=== PATIENT | male | born 1945 | race Caucasian/White ===

== ENCOUNTER 2018-12-31 11:45 | Inpatient (IN) ==
--- NOTE | 2018-12-31 12:45 | Emergency Department Note ---
Disposition Clinical Impression: Hypoxia Pneumonia Qualifiers: Pneumonia type: due to unspecified organism Laterality: left Lung location: upper lobe of lung Qualified Code(s): J18.1 - Lobar pneumonia, unspecified [facility] Lung cancer Qualifiers: Laterality: left Lung location: unspecified part of lung Qualified Code(s): C34.92 - Malignant neoplasm of unspecified part of left bronchus or lung Disposition: Admitted As Inpatient Condition: Good Time of Disposition: 14:00 General Adult HPI - General Chief complaint: ED Weakness Stated complaint: Weakness/Falls/Cough Time Seen by Provider: 12/31/18 12:45 Source: patient Limitations: no limitations Nursing Notes Reviewed: Yes Vital Signs Reviewed: Yes - History of Present Illness HPI Narrative: 73-year-old male presents emergency department with concern for generalized weakness and falls. Patient states that he has left-sided lung cancer, but has not been formally diagnosed or worked up for it. Was scheduled for PET scan today, however, at home is concerned that he has not been able to get around, he has been very weak, falling multiple times. Denies hitting his head. Pain Scale: 6 - Related Data Home Medications Medication Instructions Recorded Confirmed Diltiazem CD (24hr) [Cardizem CD] 240 mg PO DAILY 12/20/18 12/31/18 GlipiZIDE [Glipizide Xl] 5 mg PO BID 12/20/18 12/31/18 Losartan Potassium [Cozaar] 50 mg PO DAILY 12/20/18 12/31/18 Metoprolol XL (24 HR) Succ [Toprol 25 mg PO BID 12/20/18 12/31/18 XL] Simvastatin [Zocor] 40 mg PO HS 12/20/18 12/31/18 Triamterene/HCTZ 37.5/25mg 1 tab PO DAILY 12/20/18 12/31/18 [Dyazide] buPROPion HCl [Bupropion HCl Sr] 200 mg PO BID 12/20/18 12/31/18 clonazePAM [Clonazepam] 2 mg PO BID PRN 12/31/18 12/31/18 raNITIdine HCl [Ranitidine HCl] 300 mg PO DAILY 12/31/18 12/31/18 Allergies Allergy/AdvReac Type Severity Reaction Status Date / Time No Known Allergies Allergy Verified 12/20/18 16:46 All systems ED: reviewed and negative except as stated. Review of Systems: As Per HPI Constitutional: Denies: fever Cardiovascular: Denies: chest pain Respiratory: Reports: cough, dyspnea. Denies: sputum production Gastrointestinal: Reports: nausea. Denies: abdominal pain, vomiting Genitourinary: Denies: urgency, dysuria, frequency Musculoskeletal: Denies: back pain, neck pain Past Medical History - Past Medical History Attestation: Yes The following information was validated with the patient. Medical history: Reports: cancer, diabetes, hypertension, myocardial infarction Psychiatric history: Reports: no psych history - Social History Smoking Status: Former smoker Smokeless Tobacco Status: Yes Alcohol use: Reports: none Drug use: Reports: none Physical Exam - General Limitations: no limitations General appearance: alert, in no apparent distress - Head Head exam: normocephalic - Eye Eye exam: Present: EOMI - ENT ENT exam: mucous membranes moist - Neck Neck exam: Present: trachea midline - Chest Chest inspection: Present: symmetric chest wall rise - Respiratory Respiratory exam: Present: normal lung sounds bilaterally, wheezes. Absent: respiratory distress, accessory muscle use - Cardiovascular Cardiovascular exam: Present: regular rate, irregular rhythm, normal heart sounds - Abdominal Exam Abdominal exam: Present: soft, Non-Tender. Absent: distention, guarding, rebound, rigidity - Extremities Exam Extremities exam: Present: normal capillary refill - Back Exam Back exam: Present: full ROM - Neurological Exam Neurological exam: Present: alert, oriented X3, CN II-XII intact - Psychiatric Psychiatric exam: Present: normal affect, normal mood - Skin Skin exam: Present: warm, dry, intact, normal color. Absent: rash Course Vital Signs Temperature 98.3 F 12/31/18 12:00 Pulse Rate 60 12/31/18 12:00 Respiratory Rate 18 12/31/18 12:00 Blood Pressure 114/63 12/31/18 12:00 O2 Sat by Pulse Oximetry 96 12/31/18 12:00 Temperature 98.1 F 12/31/18 15:18 Pulse Rate 78 12/31/18 15:18 Respiratory Rate 17 12/31/18 15:18 Blood Pressure 111/72 12/31/18 15:18 O2 Sat by Pulse Oximetry 96 12/31/18 15:39 Oxygen Delivery Oxygen Delivery Room Air Medical Decision Making - MDM Narrative Medical decision making narrative: 73-year-old male presents emergency department with concern for generalized weakness. Patient's chest x-ray which reveals lung mass on the left side with possible pneumonia. Patient was given Rocephin and azithromycin. Blood cultures were obtained. Patient with no elevated troponin, no ischemic ST changes on ECG, no other abnormalities. Patient had oxygen saturation about 92% throughout his stay. We did provide 2 L of oxygen via nasal cannula. Patient admitted for generalized weakness with multiple falls as well as COPD exacerbation with pneumonia. Here throughout his stay, he could receive further workup for his cancer. Did not provide any fluid out of concern for possible fluid overload with some of the read from radiology report. Chest X-Ray 12/31/18 13:04 IMPRESSION: 1. Left middle lower lung interstitial opacities, increased from prior study may represent asymmetric pulmonary edema, interstitial pneumonitis, or posttherapy changes. 2. Left perihilar mass again seen. D/ / Varun Gilbert MD / Varun Gilbert MD Interpreting Provider: Varun Gilbert MD - Lab Data Result diagrams: 12/31/18 12:43 12/31/18 12:43 Lab Results 12/31/18 12/31/18 12/31/18 Range/Units 12:43 12:43 13:49 WBC 9.1 (4.3-11.1) K/mcL RBC 3.54 L (4.19-5.50) M/mcL Hgb 10.4 L (12.9-16.9) g/dL Hct 32.1 L (37.5-50.1) % MCV 90.7 (83.0-100.0) fL MCH 29.4 (28.0-33.3) pg MCHC 32.4 (31.6-35.5) g/dL RDW 14.9 H (11.5-14.5) % Plt Count 358 (140-400) K/mcL MPV 8.6 L (9.4-12.4) fL Immature Gran % 0.7 (0-4) % Seg Neutrophils % 71.0 % Lymphocytes % 13.3 % Monocytes % 13.9 % Eosinophils % 0.8 % Basophils % 0.3 % Neutrophils # 6.4 (1.6-8.9) K/mcL Lymphocytes # 1.2 (0.6-4.6) K/mcL Monocytes # 1.3 (0.0-1.3) K/mcL Eosinophils # 0.1 (0.0-0.6) K/mcL Basophils # 0.0 (0.0-0.2) K/mcL Sodium 137 (136-145) mEq/L Potassium 3.9 (3.5-5.1) mEq/L Chloride 101 (98-107) mEq/L Carbon Dioxide 29 (23-29) mEq/L BUN 16 (8-23) mg/dL Creatinine 0.73 (0.70-1.30) mg/dL Est GFR ( Amer) > 60 (> 60) Est GFR (Non-Af Amer) > 60 (> 60) BUN/Creatinine Ratio 22 (6-26) Glucose 136 H (70-105) mg/dL Calculated Osmolality 287 (280-300) Calcium 8.9 (8.6-10.3) mg/dL Troponin I < 0.03 (< 0.04) ng/mL B-Natriuretic Peptide (Less than 100) pg/mL Urine Color Yellow (Yellow) Urine Clarity Clear (Clear) Urine pH 7.5 (5.0-8.0) pH Units Ur Specific [place] 1.011 (1.010-1.025) Urine Protein Negative (Neg-Trace) mg/dL Urine Glucose (UA) Normal (Normal) mg/dL Urine Ketones Negative (Negative) mg/dL Urine Blood Negative (Negative) Urine Nitrite Negative (Negative) Urine Bilirubin Negative (Negative) Urine Urobilinogen Normal (Normal) mg/dL Ur Leukocyte Esterase Negative (Negative) Ur Culture Indicated? NO (NO) 12/31/18 Range/Units 13:54 WBC (4.3-11.1) K/mcL RBC (4.19-5.50) M/mcL Hgb (12.9-16.9) g/dL Hct (37.5-50.1) % MCV (83.0-100.0) fL MCH (28.0-33.3) pg MCHC (31.6-35.5) g/dL RDW (11.5-14.5) % Plt Count (140-400) K/mcL MPV (9.4-12.4) fL Immature Gran % (0-4) % Seg Neutrophils % % Lymphocytes % % Monocytes % % Eosinophils % % Basophils % % Neutrophils # (1.6-8.9) K/mcL Lymphocytes # (0.6-4.6) K/mcL Monocytes # (0.0-1.3) K/mcL Eosinophils # (0.0-0.6) K/mcL Basophils # (0.0-0.2) K/mcL Sodium (136-145) mEq/L Potassium (3.5-5.1) mEq/L Chloride (98-107) mEq/L Carbon Dioxide (23-29) mEq/L BUN (8-23) mg/dL Creatinine (0.70-1.30) mg/dL Est GFR ( Amer) (> 60) Est GFR (Non-Af Amer) (> 60) BUN/Creatinine Ratio (6-26) Glucose (70-105) mg/dL Calculated Osmolality (280-300) Calcium (8.6-10.3) mg/dL Troponin I (< 0.04) ng/mL B-Natriuretic Peptide 177 H (Less than 100) pg/mL Urine Color (Yellow) Urine Clarity (Clear) Urine pH (5.0-8.0) pH Units Ur Specific [place] (1.010-1.025) Urine Protein (Neg-Trace) mg/dL Urine Glucose (UA) (Normal) mg/dL Urine Ketones (Negative) mg/dL Urine Blood (Negative) Urine Nitrite (Negative) Urine Bilirubin (Negative) Urine Urobilinogen (Normal) mg/dL Ur Leukocyte Esterase (Negative) Ur Culture Indicated? (NO) - EKG Data EKG #1 EKG attestation: Yes I reviewed and interpreted this EKG. EKG results narrative: 1303 Heart rate 76 bpm, QRS duration 125 ms, QT 391 segs, no P waves. Atrial flutter. This is new from previous ECG, but patient states he has a history of this. No Ischemic ST changes. Attestation Statement - Attestation Attestation: I examined this patient and my medical decision-making was reviewed with the Resident Physician. I agree with the documented findings, disposition and t reatment plan as described except to the extent set forth below. Patient presents here generalized weakness, does have a cough, patient does have a left-sided lung mass, he does have some wheezing on examination. However he is in no respiratory distress. Patient did have an EKG, do agree with resident's interpretation of this EKG. The patient appears to be in atrial flutter which he apparently has had a history of arrhythmia in the past. The patient possibly could have a post obstructive pneumonia. The patient at this point in time was treated with antibiotics, patient is going to be admitted for further evaluation and care.
[2018-12-31 12:57] LABS: Basophils % 0.3 %; Eosinophils # 0.1 K/mcL (0.0-0.6); Eosinophils % 0.8 %; Hematocrit 32.1 % (37.5-50.1); Hemoglobin 10.4 g/dL (12.9-16.9); Immature Granulocytes % 0.7 % (0-4); Lymphocytes # 1.2 K/mcL (0.6-4.6); Lymphocytes % 13.3 %; Mean Corpuscular HGB Conc 32.4 g/dL (31.6-35.5); Mean Corpuscular Hemoglobin 29.4 pg (28.0-33.3); Mean Corpuscular Volume 90.7 fL (83.0-100.0); Mean Platelet Volume 8.6 fL (9.4-12.4); Monocytes # 1.3 K/mcL (0.0-1.3); Monocytes % 13.9 %; Neutrophils # 6.4 K/mcL (1.6-8.9); Platelet Count 358 K/mcL (140-400); Red Blood Count 3.54 M/mcL (4.19-5.50); Red Cell Distribution Width 14.9 % (11.5-14.5); White Blood Count 9.1 K/mcL (4.3-11.1)
[2018-12-31] MEDS ORDERED: predniSONE 20 MG TABLET PO ONE (13:06)
[2018-12-31 13:19] LABS: BUN/Creatinine Ratio 22 (6-26); Blood Urea Nitrogen 16 mg/dL (8-23); Calcium 8.9 mg/dL (8.6-10.3); Carbon Dioxide 29 mEq/L (23-29); Chloride 101 mEq/L (98-107); Glucose 136 mg/dL (70-105); Osmolality,Calculated 287 (280-300); Potassium 3.9 mEq/L (3.5-5.1); Sodium 137 mEq/L (136-145); Troponin I < 0.03 ng/mL (< 0.04); eGFR For African Americans > 60 (> 60); eGFR For Non-African Americans > 60 (> 60)
[2018-12-31] MEDS: Ipratropium/Albuterol Neb 3 ML IH ONE ×3 (13:23→13:25)
[2018-12-31] MEDS ORDERED: cefTRIAXone 1,000 MG in Water for inj. (sterile) 10 ML IVP ONE (13:43)
[2018-12-31] MEDS ORDERED: Azithromycin 500 MG in 0.9 % Sodium Chloride 250 ML IVPB ONE (13:43)
[2018-12-31 14:05] LABS: Bilirubin,Urine Negative (Negative); Blood,Urine Negative (Negative); Clarity,Urine Clear (Clear); Color,Urine Yellow (Yellow); Glucose,Urine (UA) Normal (Normal); Ketones,Urine Negative (Negative); Leukocyte Esterase,Urine Negative (Negative); Nitrite,Urine Negative (Negative); PH,Urine 7.5 pH Units (5.0-8.0); Protein,Urine Negative (Neg-Trace); Specific Gravity,Urine 1.011 (1.010-1.025); Urobilinogen,Urine Normal (Normal)
[2018-12-31] MEDS ORDERED: Naloxone 0.4 MG/ML INJ IVP PRN (15:57)
--- NOTE | 2018-12-31 16:13 | Internal Med History&Physical ---
Date of Encounter: 12/31/18 Time of Encounter: 16:06 Internal Medicine - H&P: HPI Chief complaint: Weakness Admitted From: Home Plans for Post Hospital Care: Home History of present illness: Mr. Gayle is a 73 year old male with a PMHx of HTN, DM, CAD, Depression, A. Flutter, GERD and a recent diagnosis of Lung mass (suspicious for Ca). Patient was brought in by on account of increasing weakness, fever, chills and productive cough over the last 2 weeks. Patient has been following with oncology as an outpatient and was scheduled for a PET scan today but was concerned about his generalized weakness and brought him in. Past Med Surg Social Fam HX - Past Medical History Medical history: cancer, coronary artery disease, diabetes, GERD, hypertension, myocardial infarction Psychiatric history: depression - Past Surgical History Additional surgical history: Lt leg surgery - Social History Smoking Status: Former smoker Smokeless Tobacco Status: Yes Alcohol use: none Drug use: none - Family History Father Living Status: Age at : 82 Cause of : colon cancer Internal Medicine - H&P: Meds Diltiazem CD (24hr) [Cardizem CD] 240 mg PO DAILY 12/20/18 [History] GlipiZIDE [Glipizide Xl] 5 mg PO BID 12/20/18 [History] Losartan Potassium [Cozaar] 50 mg PO DAILY 12/20/18 [History] Metoprolol XL (24 HR) Succ [Toprol XL] 25 mg PO BID 12/20/18 [History] Simvastatin [Zocor] 40 mg PO HS 12/20/18 [History] Triamterene/HCTZ 37.5/25mg [Dyazide] 1 tab PO DAILY 12/20/18 [History] buPROPion HCl [Bupropion HCl Sr] 200 mg PO BID 12/20/18 [History] clonazePAM [Clonazepam] 2 mg PO BID PRN 12/31/18 [History] raNITIdine HCl [Ranitidine HCl] 300 mg PO DAILY 12/31/18 [History] Allergy/AdvReac Type Severity Reaction Status Date / Time No Known Allergies Allergy Verified 12/20/18 16:46 All Systems PM: A 10-system review of systems was performed and is negative for pertinent findings except as documented above in the HPI. Review of systems: GENERAL: Admits fever and chills. HEENT: No rhinorrhea, No sore throat, No ear pain or discharge, No dysphagia or odynophagia PULMONARY: Admits productive cough, No chest pain, Admits dyspnea on exertion CARDIOVASCULAR: No chest pain, no palpitations, No PND, No orthopnea GASTROINTESTINAL: No abdominal pain, No nausea, No vomiting, No constipation, No DIARRHEA, No hematemesis, No hematochezia MUSKULOSKELETAL: No edema, No swelling, No pain INTEGUMENTARY: No new skin lesions NERVOUS SYSTEM: No Dizziness, No weakness, No slurred speech, No diplopia or blurred/ loss vision, No numbness, No tingling sensation. - Constitutional Vitals: Temp Pulse Resp BP Pulse Ox 36.7 C 78 17 111/72 96 12/31/18 15:18 12/31/18 15:18 12/31/18 15:18 12/31/18 15:18 12/31/18 15:39 Exam: GENERAL: Not in distress. Alert and Oriented HEENT: EOMI, PERRLA MOUTH: Moist oral mucosa NECK:No JVD, No lymph nodes. CHEST AND LUNGS: Bronchial breath sounds in left middle zone posteriorly. No crackles or wheezes HEART: S1 and S2 normal, no murmurs ABDOMEN: Soft, nontender, no organomegaly SKIN: Normal: hyperpigmented macules on upper extremities. Patient states from bruising while he was on antiplatelets. EXTREMITIES: No deformity, no edema, no tenderness, no joint swelling or clubbing NEUROLOGICAL: Normal cognition, normal motor and sensory exam. Internal Med - H&P Results - Labs CBC & Chem 7: 12/31/18 12:43 12/31/18 12:43 Labs: Short CBC 12/31/18 Range/Units 12:43 WBC 9.1 (4.3-11.1) K/mcL Hgb 10.4 L (12.9-16.9) g/dL Hct 32.1 L (37.5-50.1) % Plt Count 358 (140-400) K/mcL Neutrophils # 6.4 (1.6-8.9) K/mcL BMP 12/31/18 12:43 Sodium 137 Potassium 3.9 Chloride 101 Carbon Dioxide 29 BUN 16 Creatinine 0.73 Glucose 136 H Calcium 8.9 Cardiac Enzymes 12/31/18 Range/Units 12:43 Troponin I < 0.03 (< 0.04) ng/mL Urine 12/31/18 Range/Units 13:49 Urine Color Yellow (Yellow) Urine Clarity Clear (Clear) Urine pH 7.5 (5.0-8.0) pH Units Ur Specific [place] 1.011 (1.010-1.025) Urine Protein Negative (Neg-Trace) mg/dL Urine Glucose (UA) Normal (Normal) mg/dL - Impressions ITS Impressions Chest X-Ray 12/31/18 13:04 IMPRESSION: 1. Left middle lower lung interstitial opacities, increased from prior study may represent asymmetric pulmonary edema, interstitial pneumonitis, or posttherapy changes. 2. Left perihilar mass again seen. D/ / Varun Gilbert MD / Varun Gilbert MD Interpreting Provider: Varun Gilbert MD - Assessment and Plan (1) Pneumonia Current Visit: Yes Status: Acute Assessment and plan: Patient admits fever, chills and productive cough with associated weakness over the last 2 weeks. Patient has a recently diagnosed lung mass suspicious for CA. Chest x-ray, which I personally reviewed shows a left upper lobe lung mass with hazy opacification in the lower border suspicious for possible pneumonia. We will treat as community-acquired pneumonia. This may likely be postobstructive from the large lung mass. Qualifiers: Pneumonia type: due to unspecified organism Laterality: left Lung location: upper lobe of lung Qualified Code(s): J18.1 - Lobar pneumonia, unspecified organism (2) Lung mass Current Visit: Yes Status: Acute Assessment and plan: Patient undergoing investigation as outpatient with oncology. We will scheduled for PET scan today but was unable to make appointment We will debt and budget counselor to follow up with oncology as outpatient once his acute problem is dealt with. (3) Hypertension Current Visit: Yes Status: Acute Assessment and plan: Continue home meds. Qualifiers: Hypertension type: essential hypertension Qualified Code(s): I10 - Essential (primary) hypertension (4) Diabetes mellitus Current Visit: Yes Status: Acute Assessment and plan: Accu-Cheks Insulin sliding scale Qualifiers: Diabetes mellitus type: type 2 Diabetes mellitus halfway insulin use: without halfway use Diabetes mellitus complication status: without complication Qualified Code(s): E11.9 - Type 2 diabetes mellitus without complications (5) Depression Current Visit: Yes Status: Chronic Assessment and plan: Patient is a [place] with a history of depression. We will continue home Wellbutrin. Qualifiers: Depression Type: major depressive disorder Major depression recurrence: recurrent Active/Remission status: in remission of unspecified degree Qualified Code(s): F33.40 - Major depressive disorder, recurrent, in remission, unspecified (6) Hyperlipidemia Current Visit: Yes Status: Chronic Assessment and plan: Continue statin. Qualifiers: Hyperlipidemia type: mixed hyperlipidemia Qualified Code(s): E78.2 - Mixed hyperlipidemia - Time Spent With Patient Total time spent is greater than 50% in coordination of care (as documented) at patient's floor/unit and/or counseling patient:
[2018-12-31 17:12] LABS: INR 1.2
[2018-12-31 17:14] LABS: Heparin anti-factor XA LMWH 0.03 IU/mL (0.50-1.10)
[2018-12-31] MEDS ORDERED: D5% in Water 1,000 ML IVC PRN (18:13)
[2018-12-31] MEDS ORDERED: Dextrose Gel 15 GM/37.5 ML TUBE PO PRN ×2 (18:13)
[2018-12-31] MEDS ORDERED: *HR* Dextrose 50 % in Water (Syg) 50 ML SYRINGE IVP PRN (18:13)
[2018-12-31] MEDS: Metoprolol XL (24 HR) Succ 25 MG TAB.ER.24H PO SCH (20:03)
[2018-12-31] MEDS: *HR* Heparin 5,000 UNIT/ML VIAL SQ SCH (20:03)
[2018-12-31] MEDS: BuPROPion SR (12 HR) 100 MG TABLET PO SCH (20:03)
[2018-12-31] MEDS: clonazePAM 1 MG TABLET PO PRN (20:03)
[2019-01-01 02:35] LABS: Basophils % 0.2 %; Hematocrit 29.7 % (37.5-50.1); Hemoglobin 9.4 g/dL (12.9-16.9); Immature Granulocytes % 0.5 % (0-4); Lymphocytes # 0.7 K/mcL (0.6-4.6); Lymphocytes % 10.3 %; Mean Corpuscular HGB Conc 31.6 g/dL (31.6-35.5); Mean Corpuscular Hemoglobin 29.1 pg (28.0-33.3); Mean Platelet Volume 9.2 fL (9.4-12.4); Monocytes # 0.6 K/mcL (0.0-1.3); Monocytes % 9.4 %; Neutrophils # 5.2 K/mcL (1.6-8.9); Platelet Count 311 K/mcL (140-400); Red Blood Count 3.23 M/mcL (4.19-5.50); Red Cell Distribution Width 14.6 % (11.5-14.5); Segmented Neutrophils % 79.6 %; White Blood Count 6.6 K/mcL (4.3-11.1)
[2019-01-01 02:55] LABS: BUN/Creatinine Ratio 21 (6-26); Blood Urea Nitrogen 14 mg/dL (8-23); Calcium 8.5 mg/dL (8.6-10.3); Carbon Dioxide 26 mEq/L (23-29); Chloride 104 mEq/L (98-107); Glucose 271 mg/dL (70-105); Osmolality,Calculated 296 (280-300); Potassium 3.9 mEq/L (3.5-5.1); Sodium 138 mEq/L (136-145); eGFR For African Americans > 60 (> 60); eGFR For Non-African Americans > 60 (> 60)
[2019-01-01] MEDS: *HR* Heparin 5,000 UNIT/ML VIAL SQ SCH ×3 (05:04→20:17)
[2019-01-01] MEDS: Insulin LISPRO 300 UNITS/3 ML VIAL SQ SCH ×3 (09:37→16:35)
[2019-01-01] MEDS: Famotidine 20 MG TABLET PO SCH (09:38)
[2019-01-01] MEDS: Azithromycin 250 MG TABLET PO SCH (09:38)
[2019-01-01] MEDS: BuPROPion SR (12 HR) 100 MG TABLET PO SCH ×2 (09:38→20:17)
[2019-01-01] MEDS: Metoprolol XL (24 HR) Succ 25 MG TAB.ER.24H PO SCH ×2 (09:39→20:17)
[2019-01-01] MEDS: Diltiazem CD (24hr) 240 MG CAPSULE PO SCH (09:39)
--- NOTE | 2019-01-01 12:44 | Internal Med Progress Note ---
Hospitalist Progress Note - Encounter Date of Encounter: 01/01/19 Time of Encounter: 09:35 - Subjective Interval History: Patient seen and examined. He states that he is more short of breath today and wanrs stronger antibiotics for his pneumonia. He denies chest pain, fever and chills. - Exam Vitals: Temp Pulse Resp BP Pulse Ox 37.2 C 83 17 121/67 99 01/01/19 11:38 01/01/19 11:38 01/01/19 11:38 01/01/19 11:38 01/01/19 11:38 Exam: GENERAL: Not in distress. Alert and Oriented HEENT: EOMI, PERRLA MOUTH: Moist oral mucosa NECK:No JVD, No lymph nodes. CHEST AND LUNGS: Bronchial breath sounds in left middle zone posteriorly. No crackles or wheezes HEART: S1 and S2 normal, no murmurs ABDOMEN: Soft, nontender, no organomegaly SKIN: Normal: hyperpigmented macules on upper extremities. Patient states from bruising while he was on antiplatelets. EXTREMITIES: No deformity, no edema, no tenderness, no joint swelling or clubbing NEUROLOGICAL: Normal cognition, normal motor and sensory exam. - Assessment and Plan (1) Pneumonia Current Visit: Yes Status: Acute Assessment and Plan: Curently on Ceftriaxone and azithromycin Patient endorses being more short of breath today. (2) Lung mass Current Visit: Yes Status: Acute Assessment and Plan: IR consulted Patient scheduled for possible CT guided lung biopsy today. (3) Hypertension Current Visit: Yes Status: Acute Assessment and Plan: Continue home meds. (4) Diabetes mellitus Current Visit: Yes Status: Acute Assessment and Plan: Accu-Cheks Insulin sliding scale (5) Depression Current Visit: Yes Status: Chronic Assessment and Plan: Patient is a [place] with a history of depression. We will continue home Wellbutrin. (6) Hyperlipidemia Current Visit: Yes Status: Chronic Assessment and Plan: Continue statin. - Time Spent with Patient Total time spent is greater than 50% in coordination of care (as documented) at patient's floor/unit and/or counseling patient: Internal Medicine: Result - Labs CBC & Chem 7: 01/01/19 01:15 01/01/19 01:15 Labs: Short CBC 12/31/18 01/01/19 Range/Units 12:43 01:15 WBC 9.1 6.6 (4.3-11.1) K/mcL Hgb 10.4 L 9.4 L (12.9-16.9) g/dL Hct 32.1 L 29.7 L (37.5-50.1) % Plt Count 358 311 (140-400) K/mcL Neutrophils # 6.4 5.2 (1.6-8.9) K/mcL BMP 12/31/18 01/01/19 12:43 01:15 Sodium 137 138 Potassium 3.9 3.9 Chloride 101 104 Carbon Dioxide 29 26 BUN 16 14 Creatinine 0.73 0.68 L Glucose 136 H 271 H Calcium 8.9 8.5 L Cardiac Enzymes 12/31/18 Range/Units 12:43 Troponin I < 0.03 (< 0.04) ng/mL Urine 12/31/18 Range/Units 13:49 Urine Color Yellow (Yellow) Urine Clarity Clear (Clear) Urine pH 7.5 (5.0-8.0) pH Units Ur Specific [place] 1.011 (1.010-1.025) Urine Protein Negative (Neg-Trace) mg/dL Urine Glucose (UA) Normal (Normal) mg/dL - ABG Interpretation ABG results: PT/INR, D-dimer PT 14.0 Seconds (9.4-12.1) H 12/31/18 16:36 - Impressions Impressions Chest X-Ray 12/31/18 13:04 IMPRESSION: 1. Left middle lower lung interstitial opacities, increased from prior study may represent asymmetric pulmonary edema, interstitial pneumonitis, or posttherapy changes. 2. Left perihilar mass again seen. D/ / Varun iGlbert MD / Varun Gilbert MD Interpreting Provider: Varun Gilbert MD Hand X-Ray 01/01/19 10:36 IMPRESSION: Tiny metallic foreign body seen in the dorsal soft tissues overlying the base of the proximal phalanx of the 2nd digit. D/ / Navjot Duff MD / Navjot Duff MD Interpreting Provider: Navjot Duff MD Consult Discharge Plan - Plan Referrals: Chandni Keating CNP [Primary Care Provider] - 01/08/19 11:40 am (1) Pneumonia Qualifiers: Pneumonia type: due to unspecified organism Laterality: left Lung location: upper lobe of lung Qualified Code(s): J18.1 - Lobar pneumonia, unspecified organism (3) Hypertension Qualifiers: Hypertension type: essential hypertension Qualified Code(s): I10 - Essential (primary) hypertension (4) Diabetes mellitus Qualifiers: Diabetes mellitus type: type 2 Diabetes mellitus senior living insulin use: without technician terminal and repeater use Diabetes mellitus complication status: without complication Qualified Code(s): E11.9 - Type 2 diabetes mellitus without complications (5) Depression Qualifiers: Depression Type: major depressive disorder Major depression recurrence: recurrent Active/Remission status: in remission of unspecified degree Qualified Code(s): F33.40 - Major depressive disorder, recurrent, in remission, unspecified (6) Hyperlipidemia Qualifiers: Hyperlipidemia type: mixed hyperlipidemia Qualified Code(s): E78.2 - Mixed hyperlipidemia
[2019-01-01] MEDS: cefTRIAXone 2,000 MG in Water for inj. (sterile) 20 ML IVP SCH (12:45)
[2019-01-01] MEDS ORDERED: 0.9 % Sodium Chloride 500 ML ONE (14:02)
[2019-01-01] MEDS ORDERED: Gadolinium Contrast Agent (WT Based) IV PRN (16:36)
--- NOTE | 2019-01-01 16:42 | Oncology Inp Consult Note ---
Date of Encounter: 01/01/19 Time of Encounter: 16:00 Assessment and Plan (1) Lung mass Status: Acute Assessment and plan: Mr. Gayle appears to have a locally advanced left lung cancer. By personal review of imaging, I am concerned about his left hilar as well as mediastinal lymphadenopathy. The left adrenal lesion also appears concerning for metastasis. Patient undergo CT-guided biopsy tomorrow for definitive diagnosis. We have arranged for outpatient PET CT imaging. I will obtain an MRI of the brain with and without IV contrast while hospitalized. Further decisions pending these studies. I did discuss potential options with the patient including the potential for concurrent chemoradiotherapy as opposed to systemic therapy if he has more Blake disease. I recommended holding on further discussion until we have staging studies. Patient voiced understanding. We will arrange for outpatient follow- up. For his cough, I prescribed Tessalon Perles 200 mg 3 times a day as well as Robitussin AC as needed. - Data of Consult Requesting Physician: Denise Arreguin MD Primary Care Provider: Chandni Keating CNP - Consult Narrative Reason for consult: Worsening lung mass History of present illness: Mr. Gayle's very pleasant 72-year-old man who was initially found to have multiple HIGH pleural plaques consistent with asbestos exposure. There are also multiple parenchymal abnormalities involving the lung apices with ill-defined nodules as well as scarring. Follow-up was recommended. More recently, he developed a nonproductive cough which has worsened over time as well as shortness of breath. He believes he has lost nearly 20 pounds over the past [address] imaging 12/24/2018 revealed a 5.2 x 6.2 Center left upper lobe lung mass with a number of smaller satellite nodules involving left upper lobe. There is a left pleural effusion present. There is also mild left hilar and mediastinal lymphadenopathy as well as a left adrenal gland mass. I personally reviewed this. Interventional radiology has scheduled biopsy for tomorrow morning. The patient has established care with Dr. Calderon in the oncology clinic as well. Outpatient PET CT scan has been arranged. Today, he has dyspnea on exertion as well as a continued severe cough. Cough is nonproductive. No hemoptysis. No fever or chill. Energy is down. No headache, blurred double vision. He does have bilateral shoulder as well as cervical neck pain related to his cough. Past Med Surg Social Fam HX - Past Medical History Medical history: cancer, coronary artery disease, diabetes, GERD, hypertension, myocardial infarction Psychiatric history: depression - Past Surgical History Additional surgical history: Lt leg surgery - Social History Smoking Status: Former smoker Smokeless Tobacco Status: Yes Alcohol use: none Drug use: none - Family History Father Living Status: Age at : 82 Cause of : colon cancer Medications and Allergies Diltiazem CD (24hr) [Cardizem CD] 240 mg PO DAILY 12/20/18 [History] GlipiZIDE [Glipizide Xl] 5 mg PO BID 12/20/18 [History] Losartan Potassium [Cozaar] 50 mg PO DAILY 12/20/18 [History] Metoprolol XL (24 HR) Succ [Toprol XL] 25 mg PO BID 12/20/18 [History] Simvastatin [Zocor] 40 mg PO HS 12/20/18 [History] Triamterene/HCTZ 37.5/25mg [Dyazide] 1 tab PO DAILY 12/20/18 [History] buPROPion HCl [Bupropion HCl Sr] 200 mg PO BID 12/20/18 [History] clonazePAM [Clonazepam] 2 mg PO BID PRN 12/31/18 [History] raNITIdine HCl [Ranitidine HCl] 300 mg PO DAILY 12/31/18 [History] Allergy/AdvReac Type Severity Reaction Status Date / Time No Known Allergies Allergy Verified 12/20/18 16:46 All systems: reviewed and no additional remarkable complaints except as stated Constitutional: Present: as per HPI, fatigue, weight loss Eyes: Present: as per HPI Ears: Present: as per HPI Nose, mouth and throat: Present: as per HPI Cardiovascular: Present: dyspnea on exertion Respiratory: Present: as per HPI Gastrointestinal: Present: constipation Genitourinary: Present: as per HPI Musculoskeletal: Present: back pain Neurological: Present: as per HPI Endocrine: Present: as per HPI Oncology - Exam - Constitutional General appearance: average body habitus, cooperative, no acute distress - Head Head exam: Present: atraumatic, normal inspection, normocephalic - Eye Eye exam: Present: EOMI, normal appearance, conjuntiva pink, sclera anicteric - ENT ENT exam: Present: mucous membranes moist, normal exam, normal oropharynx - Respiratory Respiratory exam: Present: decreased breath sounds, CTAB - Cardiovascular Cardiovascular exam: Present: RRR - GI/Abdominal GI/Abdominal exam: Present: normal bowel sounds, soft - Extremities Exam Extremities exam: Present: normal inspection, pedal edema - Back Exam Back exam: Present: normal inspection - Neurological Exam Neurological exam: Present: alert, CN II-XII intact, oriented X3, no focal deficits - Skin Skin exam: Present: normal color Oncology Inpatient Results Labs: Laboratory Results - last 24 hr 12/31/18 12/31/18 01/01/19 16:36 20:15 01:15 WBC 6.6 RBC 3.23 L Hgb 9.4 L Hct 29.7 L MCV 92.0 MCH 29.1 MCHC 31.6 RDW 14.6 H Plt Count 311 MPV 9.2 L Immature Gran % 0.5 Seg Neutrophils % 79.6 Lymphocytes % 10.3 Monocytes % 9.4 Eosinophils % 0.0 Basophils % 0.2 Neutrophils # 5.2 Lymphocytes # 0.7 Monocytes # 0.6 Eosinophils # 0.0 Basophils # 0.0 PT 14.0 H INR 1.2 Heparin Anti-Xa, LM Wt 0.03 L Sodium Potassium Chloride Carbon Dioxide BUN Creatinine Est GFR ( Amer) Est GFR (Non-Af Amer) BUN/Creatinine Ratio Glucose POC Glucose 328 H Calculated Osmolality Calcium 01/01/19 01:15 WBC RBC Hgb Hct MCV MCH MCHC RDW Plt Count MPV Immature Gran % Seg Neutrophils % Lymphocytes % Monocytes % Eosinophils % Basophils % Neutrophils # Lymphocytes # Monocytes # Eosinophils # Basophils # PT INR Heparin Anti-Xa, LM Wt Sodium 138 Potassium 3.9 Chloride 104 Carbon Dioxide 26 BUN 14 Creatinine 0.68 L Est GFR ( Amer) > 60 Est GFR (Non-Af Amer) > 60 BUN/Creatinine Ratio 21 Glucose 271 H POC Glucose Calculated Osmolality 296 Calcium 8.5 L 1115-8066 CT/CT chest wo con IMPRESSION: 1. New dominant left upper lobe mass with multifocal satellite nodules presumably reflecting primary bronchogenic carcinoma. 2. Mild left hilar and mediastinal lymph node enlargement is presumably metastatic but could be reactive. 3. Enlarging ground-glass and partially solid nodule right middle lobe concerning for developing malignancy. 4. New nodule left adrenal gland concerning for metastatic disease. 5. Left pleural effusion could be malignant. 6. Stable right upper lung scarring. 7. Right pleural calcification presumably related to prior empyema or hemothorax. 8. Calcific atherosclerosis aorta and coronary arteries. Consult Discharge Plan - Plan Referrals: Chandni Keating CNP [Primary Care Provider] - 01/08/19 11:40 am Inpatient Charges Provider: Dr. Denise Garcia Consult - Inpatient Medicare Only: [id number]
[2019-01-01] MEDS: Benzonatate 100 MG CAPSULE PO SCH ×2 (17:04→20:17)
[2019-01-01] MEDS: GuaiFENesin/Codeine Oral Soln 5 ML UDC PO PRN (20:17)
[2019-01-01] MEDS: clonazePAM 1 MG TABLET PO PRN (20:17)
[2019-01-02 01:30] LABS: Basophils % 0.3 %; Eosinophils # 0.1 K/mcL (0.0-0.6); Eosinophils % 0.4 %; Hematocrit 31.2 % (37.5-50.1); Immature Granulocytes % 0.4 % (0-4); Lymphocytes # 1.6 K/mcL (0.6-4.6); Lymphocytes % 13.3 %; Mean Corpuscular HGB Conc 32.1 g/dL (31.6-35.5); Mean Corpuscular Hemoglobin 28.9 pg (28.0-33.3); Mean Corpuscular Volume 90.2 fL (83.0-100.0); Mean Platelet Volume 9.1 fL (9.4-12.4); Monocytes # 1.7 K/mcL (0.0-1.3); Monocytes % 13.5 %; Neutrophils # 8.8 K/mcL (1.6-8.9); Platelet Count 347 K/mcL (140-400); Red Blood Count 3.46 M/mcL (4.19-5.50); Red Cell Distribution Width 14.9 % (11.5-14.5); Segmented Neutrophils % 72.1 %
[2019-01-02 01:35] LABS: White Blood Count 12.2 K/mcL (4.3-11.1)
[2019-01-02 01:52] LABS: BUN/Creatinine Ratio 24 (6-26); Blood Urea Nitrogen 18 mg/dL (8-23); Calcium 8.7 mg/dL (8.6-10.3); Carbon Dioxide 24 mEq/L (23-29); Chloride 102 mEq/L (98-107); Glucose 181 mg/dL (70-105); Osmolality,Calculated 286 (280-300); Potassium 4.1 mEq/L (3.5-5.1); Sodium 135 mEq/L (136-145); eGFR For African Americans > 60 (> 60); eGFR For Non-African Americans > 60 (> 60)
[2019-01-02] MEDS: *HR* Heparin 5,000 UNIT/ML VIAL SQ SCH ×3 (05:35→20:23)
[2019-01-02] MEDS: Insulin LISPRO 300 UNITS/3 ML VIAL SQ SCH ×4 (07:43→21:42)
[2019-01-02] MEDS: BuPROPion SR (12 HR) 100 MG TABLET PO SCH ×2 (08:48→19:46)
[2019-01-02] MEDS: Benzonatate 100 MG CAPSULE PO SCH ×3 (08:48→19:46)
[2019-01-02] MEDS: Azithromycin 250 MG TABLET PO SCH (08:48)
[2019-01-02] MEDS: Famotidine 20 MG TABLET PO SCH (08:49)
[2019-01-02] MEDS: Metoprolol XL (24 HR) Succ 25 MG TAB.ER.24H PO SCH ×2 (08:49→19:46)
[2019-01-02] MEDS: Diltiazem CD (24hr) 240 MG CAPSULE PO SCH (08:49)
[2019-01-02] MEDS: cefTRIAXone 2,000 MG in Water for inj. (sterile) 20 ML IVP SCH (14:02)
--- NOTE | 2019-01-02 15:19 | Internal Med Progress Note ---
Hospitalist Progress Note - Encounter Date of Encounter: 01/02/19 Time of Encounter: 08:25 - Subjective Interval History: No acute events overnight. Patient states that his breathing is better than yesterday but he is not completely better. He denies fever, chills and chest pain. - Exam Vitals: Temp Pulse Resp BP Pulse Ox 36.8 C 107 18 129/71 92 01/02/19 14:56 01/02/19 14:56 01/02/19 14:56 01/02/19 14:56 01/02/19 14:56 Exam: GENERAL: Not in distress. Alert and Oriented HEENT: EOMI, PERRLA MOUTH: Moist oral mucosa NECK:No JVD, No lymph nodes. CHEST AND LUNGS: Bronchial breath sounds in left middle zone posteriorly. No crackles or wheezes HEART: S1 and S2 normal, no murmurs ABDOMEN: Soft, nontender, no organomegaly SKIN: Normal: hyperpigmented macules on upper extremities. EXTREMITIES: No deformity, no edema, no tenderness, no joint swelling or clubbing NEUROLOGICAL: Normal cognition, normal motor and sensory exam. - Assessment and Plan (1) Pneumonia Current Visit: Yes Status: Acute Assessment and Plan: WBC 12.2 today Afebrile overnight Patient states he is feeling better than yesterday. Continue Ceftriaxone and azithromycin (2) Lung mass Current Visit: Yes Status: Acute Assessment and Plan: IR consulted Patient was unable to get a lung biopsy yesterday but is scheduled for the procedure later today. Oncology following (3) Hypertension Current Visit: Yes Status: Acute Assessment and Plan: Continue home meds. (4) Diabetes mellitus Current Visit: Yes Status: Acute Assessment and Plan: Accu-Cheks Insulin sliding scale (5) Depression Current Visit: Yes Status: Chronic Assessment and Plan: Patient is a [place] with a history of depression. We will continue home Wellbutrin. (6) Hyperlipidemia Current Visit: Yes Status: Chronic Assessment and Plan: Continue statin. - Time Spent with Patient Total time spent is greater than 50% in coordination of care (as documented) at patient's floor/unit and/or counseling patient: Internal Medicine: Result - Labs CBC & Chem 7: 01/02/19 00:13 01/02/19 00:13 Labs: Short CBC 01/02/19 Range/Units 00:13 WBC 12.2 H D (4.3-11.1) K/mcL Hgb 10.0 L (12.9-16.9) g/dL Hct 31.2 L (37.5-50.1) % Plt Count 347 (140-400) K/mcL Neutrophils # 8.8 (1.6-8.9) K/mcL BMP 01/02/19 00:13 Sodium 135 L Potassium 4.1 Chloride 102 Carbon Dioxide 24 BUN 18 Creatinine 0.74 Glucose 181 H Calcium 8.7 - ABG Interpretation ABG results: PT/INR, D-dimer PT 14.0 Seconds (9.4-12.1) H 12/31/18 16:36 - Impressions Impressions Brain MRI 01/02/19 12:47 IMPRESSION: No abnormal enhancement to suggest intracranial metastatic disease Moderate chronic microvascular disease within the periventricular white matter D/ / Oswaldo Haines MD / Oswaldo Haines MD Interpreting Provider: Oswaldo Haines MD Consult Discharge Plan - Plan Additional Instructions: Home Health has been set up through [facility]. They will contact you with a date and time to complete admission. If you need to contact them please call #[phone] or #[phone]. Referrals: Chandni Keating, ENVIRONMENTAL ISSUES INSTRUCTOR [Primary Care Provider] - 01/08/19 11:40 am (1) Pneumonia Qualifiers: Pneumonia type: due to unspecified organism Laterality: left Lung location: upper lobe of lung Qualified Code(s): J18.1 - Lobar pneumonia, unspecified organism (3) Hypertension Qualifiers: Hypertension type: essential hypertension Qualified Code(s): I10 - Essential (primary) hypertension (4) Diabetes mellitus Qualifiers: Diabetes mellitus type: type 2 Diabetes mellitus ferry terminal supervisor insulin use: without ferry terminal supervisor use Diabetes mellitus complication status: without complication Qualified Code(s): E11.9 - Type 2 diabetes mellitus without complications (5) Depression Qualifiers: Depression Type: major depressive disorder Major depression recurrence: recurrent Active/Remission status: in remission of unspecified degree Qualified Code(s): F33.40 - Major depressive disorder, recurrent, in remission, unspecified (6) Hyperlipidemia Qualifiers: Hyperlipidemia type: mixed hyperlipidemia Qualified Code(s): E78.2 - Mixed hyperlipidemia
[2019-01-02] MEDS ORDERED: 0.9 % Sodium Chloride 500 ML ONE (15:29)
--- NOTE | 2019-01-02 16:55 | IR Procedure Note ---
Date of procedure: 01/02/19 Consent Obtained: Written consent Timeout: Correct patient and procedure verified, Correct site verified, Time out performed, Skin prep completed Local anesthetic: Lidocaine 1% Was there an administrative assistant present: No Estimated blood loss (cc): 1 Complications: None; Tolerated procedure well Indications: Left lung mass Procedure Performed: Left lung biopsy Site/Technique: Left anterior chest approach Results/Findings (any specimens removed): 4 cores with 20g, lesional material per path. Tolerated well. Post Procedure Treatment Plan: Monitoring in pts room. No ptx after needle removed. CXR ordered. Specimen: to path
[2019-01-02] MEDS: Nicotine 7 MG PATCH.TD24 TD SCH (19:48)
[2019-01-02] MEDS: GuaiFENesin/Codeine Oral Soln 5 ML UDC PO PRN (20:22)
[2019-01-03] MEDS: clonazePAM 1 MG TABLET PO PRN (01:05)
[2019-01-03] MEDS ORDERED: *HR* Metoprolol 5 MG/5 ML VIAL IVP ONE ×4 (03:05→03:54)
[2019-01-03] MEDS: *HR* Heparin 5,000 UNIT/ML VIAL SQ SCH ×3 (04:05→20:18)
[2019-01-03 04:57] LABS: Basophils % 0.3 %; Eosinophils # 0.1 K/mcL (0.0-0.6); Hematocrit 33.4 % (37.5-50.1); Hemoglobin 10.5 g/dL (12.9-16.9); Immature Granulocytes % 0.6 % (0-4); Lymphocytes # 1.2 K/mcL (0.6-4.6); Lymphocytes % 9.9 %; Mean Corpuscular HGB Conc 31.4 g/dL (31.6-35.5); Mean Corpuscular Hemoglobin 28.6 pg (28.0-33.3); Mean Platelet Volume 8.8 fL (9.4-12.4); Monocytes # 1.7 K/mcL (0.0-1.3); Monocytes % 13.4 %; Neutrophils # 9.3 K/mcL (1.6-8.9); Platelet Count 422 K/mcL (140-400); Red Blood Count 3.67 M/mcL (4.19-5.50); Red Cell Distribution Width 14.8 % (11.5-14.5); Segmented Neutrophils % 74.8 %; White Blood Count 12.4 K/mcL (4.3-11.1)
[2019-01-03 05:09] LABS: BUN/Creatinine Ratio 37 (6-26); Blood Urea Nitrogen 26 mg/dL (8-23); Calcium 8.7 mg/dL (8.6-10.3); Carbon Dioxide 25 mEq/L (23-29); Chloride 99 mEq/L (98-107); Glucose 204 mg/dL (70-105); Magnesium 1.8 mg/dL (1.6-2.6); Osmolality,Calculated 291 (280-300); Potassium 3.9 mEq/L (3.5-5.1); Sodium 135 mEq/L (136-145); eGFR For African Americans > 60 (> 60); eGFR For Non-African Americans > 60 (> 60)
[2019-01-03] MEDS: Azithromycin 250 MG TABLET PO SCH (07:50)
[2019-01-03] MEDS: Metoprolol XL (24 HR) Succ 25 MG TAB.ER.24H PO SCH ×2 (07:51→20:18)
[2019-01-03] MEDS: Diltiazem CD (24hr) 240 MG CAPSULE PO SCH (07:51)
[2019-01-03] MEDS: Benzonatate 100 MG CAPSULE PO SCH ×3 (07:51→20:18)
[2019-01-03] MEDS: Famotidine 20 MG TABLET PO SCH (07:51)
[2019-01-03] MEDS: Nicotine 7 MG PATCH.TD24 TD SCH (07:51)
[2019-01-03] MEDS: Insulin LISPRO 300 UNITS/3 ML VIAL SQ SCH ×4 (07:54→21:20)
[2019-01-03] MEDS: BuPROPion SR (12 HR) 100 MG TABLET PO SCH ×2 (07:54→20:18)
[2019-01-03] MEDS ORDERED: Perflutren Lipid Microsphere 1.3 ML in 0.9 % Sodium Chloride 8.7 ML IVP ONE (11:08)
[2019-01-03] MEDS ORDERED: *HR* Digoxin 0.5 MG/2 ML AMPUL IVP ONE (12:45)
--- NOTE | 2019-01-03 12:51 | Internal Med Progress Note ---
Hospitalist Progress Note - Encounter Date of Encounter: 01/03/19 Time of Encounter: 12:46 - Subjective Interval History: Patient seen and examined. He went into atrial flutter last night with a rate in 140s and was given Lopressor by night team. Rate was initially controlled but has now gone back up into 140s. He denies palpitations, SOB and chest pain. - Exam Vitals: Temp Pulse Resp BP Pulse Ox 36.8 C 142 19 98/58 93 01/03/19 11:48 01/03/19 11:48 01/03/19 11:48 01/03/19 11:48 01/03/19 11:48 Exam: GENERAL: Not in distress. Alert and Oriented HEENT: EOMI, PERRLA MOUTH: Moist oral mucosa NECK:No JVD, No lymph nodes. CHEST AND LUNGS: Bronchial breath sounds in left middle zone posteriorly. No crackles or wheezes HEART: S1 and S2 normal, no murmurs ABDOMEN: Soft, nontender, no organomegaly SKIN: Normal: hyperpigmented macules on upper extremities. EXTREMITIES: No deformity, no edema, no tenderness, no joint swelling or clubbing NEUROLOGICAL: Normal cognition, normal motor and sensory exam. - Assessment and Plan (1) Atrial flutter with rapid ventricular response Current Visit: Yes Status: Acute Assessment and Plan: Heart rate in 140s Patient asymptomatic BP 98/58 EKG which I reviewed shows atrial flutter with RVR Will give digoxin for rate control on account of low bp Consult cardiology (2) Pneumonia Current Visit: Yes Status: Acute Assessment and Plan: WBC 12.4>12.2 today. Leukocytosis may be reactive to lung biopsy yesterday Afebrile overnight Continue Ceftriaxone and azithromycin (3) Lung mass Current Visit: Yes Status: Acute Assessment and Plan: Patient underwent uneventful lung biopsy yesterday. Will monitor. (4) Hypertension Current Visit: Yes Status: Acute Assessment and Plan: Continue home meds. (5) Diabetes mellitus Current Visit: Yes Status: Acute Assessment and Plan: Accu-Cheks Insulin sliding scale (6) Depression Current Visit: Yes Status: Chronic Assessment and Plan: Patient is a [place] with a history of depression. We will continue home Wellbutrin. (7) Hyperlipidemia Current Visit: Yes Status: Chronic Assessment and Plan: Continue statin. DVT Prophylaxis: Heparin - Time Spent with Patient Total time spent is greater than 50% in coordination of care (as documented) at patient's floor/unit and/or counseling patient: Internal Medicine: Result - Labs CBC & Chem 7: 01/03/19 04:23 01/03/19 04:23 Labs: Short CBC 01/03/19 Range/Units 04:23 WBC 12.4 H (4.3-11.1) K/mcL Hgb 10.5 L (12.9-16.9) g/dL Hct 33.4 L (37.5-50.1) % Plt Count 422 H (140-400) K/mcL Neutrophils # 9.3 H (1.6-8.9) K/mcL BMP 01/03/19 04:23 Sodium 135 L Potassium 3.9 Chloride 99 Carbon Dioxide 25 BUN 26 H Creatinine 0.71 Glucose 204 H Calcium 8.7 - ABG Interpretation ABG results: PT/INR, D-dimer PT 14.0 Seconds (9.4-12.1) H 12/31/18 16:36 - Impressions Impressions Brain MRI 01/02/19 12:47 IMPRESSION: No abnormal enhancement to suggest intracranial metastatic disease Moderate chronic microvascular disease within the periventricular white matter D/ / Oswaldo Haines MD / Oswaldo Haines MD Interpreting Provider: Oswaldo Haines MD Chest X-Ray 01/02/19 17:17 IMPRESSION: 1. There is a large left upper lobe lung mass, stable. 2. Right upper lobe infiltrate, stable. 3. Pulmonary vascular congestion, increased in severity. 4. Moderate left pleural effusion with associated left basilar atelectasis, stable. 5. Calcified right-sided pleural plaques, stable. D/ / 01/02/2019 17:23:24 Kenneth Lechuga MD / [facility] Interpreting Provider: Kenneth Lechuga MD Consult Discharge Plan - Plan Additional Instructions: Home Health has been set up through [facility]. They will contact you with a date and time to complete admission. If you need to contact them please call #[phone] or #[phone]. Referrals: Chandni Keating CNP [Primary Care Provider] - 01/08/19 11:40 am (2) Pneumonia Qualifiers: Pneumonia type: due to unspecified organism Laterality: left Lung location: upper lobe of lung Qualified Code(s): J18.1 - Lobar pneumonia, unspecified organism (4) Hypertension Qualifiers: Hypertension type: essential hypertension Qualified Code(s): I10 - Essential (primary) hypertension (5) Diabetes mellitus Qualifiers: Diabetes mellitus type: type 2 Diabetes mellitus penitentiary insulin use: with out penitentiary use Diabetes mellitus complication status: without complication Qualified Code(s): E11.9 - Type 2 diabetes mellitus without complications (6) Depression Qualifiers: Depression Type: major depressive disorder Major depression recurrence: recurrent Active/Remission status: in remission of unspecified degree Qualified Code(s): F33.40 - Major depressive disorder, recurrent, in remission, unspecified (7) Hyperlipidemia Qualifiers: Hyperlipidemia type: mixed hyperlipidemia Qualified Code(s): E78.2 - Mixed hyperlipidemia
[2019-01-03] MEDS: cefTRIAXone 2,000 MG in Water for inj. (sterile) 20 ML IVP SCH (12:58)
--- NOTE | 2019-01-03 15:24 | Electrocardiograph Report ---
[address] [address] Test Date: 2019-01-02 Pat Name: Rio Gayle Department: 113 Room: 3B11 Gender: M Lens Maker: : 1945 Requested By: [id number] Order Number: [id number] Reading MD: Shannan Zarate Measurements Intervals [place] Rate: 92 P: 63 [place]: 168 QRS: 13 QRSD: 122 T: 46 QT: 363 QTc: 413 Interpretive Statements SINUS RHYTHM POSSIBLE LEFT ATRIAL ENLARGEMENT [-0.1mV P WAVE IN V1/V2] MODERATE INTRAVENTRICULAR CONDUCTION DELAY [110+ ms QRS DURATION] Electronically Signed On 01-03-2019 15:22:52 EDT by Shannan Zarate
--- NOTE | 2019-01-03 15:26 | Electrocardiograph Report ---
[address] [address] Test Date: 2019-01-03 Pat Name: Rio Gayle Department: 113 Room: 3B11 Gender: M Microfilmer: : 1945 Requested By: Wayne Lazar Order Number: [id number] Reading MD: Shannan Zarate Measurements Intervals [place] Rate: 140 P: 91 CO: 109 QRS: -29 QRSD: 123 T: -62 QT: 301 QTc: 382 Interpretive Statements ATRIAL FLUTTER WITH RAPID VENTRICULAR RESPONSE BORDERLINE LEFT AXIS DEVIATION [QRS AXIS < -20] RIGHT BUNDLE BRANCH BLOCK [120+ ms QRS DURATION, UPRIGHT V1, 40+ ms S IN I/aVL/V4/V5/V6] Electronically Signed On 01-03-2019 15:24:32 EDT by Shannan Zarate
[2019-01-03] MEDS: *HR* Digoxin 0.5 MG/2 ML AMPUL IVP SCH (18:22)
[2019-01-04] MEDS: *HR* Digoxin 0.5 MG/2 ML AMPUL IVP SCH ×3 (00:44→12:32)
[2019-01-04] MEDS: clonazePAM 1 MG TABLET PO PRN (00:44)
[2019-01-04] MEDS: *HR* Heparin 5,000 UNIT/ML VIAL SQ SCH ×3 (05:01→21:11)
[2019-01-04] MEDS: Famotidine 20 MG TABLET PO SCH (08:09)
[2019-01-04] MEDS: Benzonatate 100 MG CAPSULE PO SCH ×3 (08:10→21:09)
[2019-01-04] MEDS: Diltiazem CD (24hr) 240 MG CAPSULE PO SCH (08:10)
[2019-01-04] MEDS: Nicotine 7 MG PATCH.TD24 TD SCH (08:10)
[2019-01-04] MEDS: Azithromycin 250 MG TABLET PO SCH (08:10)
[2019-01-04] MEDS: BuPROPion SR (12 HR) 100 MG TABLET PO SCH ×2 (08:10→21:10)
[2019-01-04] MEDS: Metoprolol XL (24 HR) Succ 25 MG TAB.ER.24H PO SCH ×2 (08:10→21:10)
[2019-01-04] MEDS: Insulin LISPRO 300 UNITS/3 ML VIAL SQ SCH ×4 (08:17→21:09)
[2019-01-04] MEDS ORDERED: Furosemide 20 MG/2 ML VIAL IVP ONE (09:14)
[2019-01-04] MEDS: *HR* OxyCODONE/APAP 5/325 TABLET PO PRN ×2 (09:26→21:10)
--- NOTE | 2019-01-04 09:35 | Oncology Inp Progress Note ---
Date of Encounter: 01/04/19 Time of Encounter: 08:00 (1) Lung cancer Current Visit: Yes Status: Acute Assessment and plan: s/p bx awaiting redsults. On abx for possible pneumonia. Confusion, lethargy. MRI brain negative. Back pain-d.w attending physician for medications. COPD/O2, NC. Episode of A flutter/congestion-on Rx. CXR, echo findings reviewed. Plan discussed with attending physician Qualifiers: Laterality: left Lung location: upper lobe of lung Qualified Code(s): C34.12 - Malignant neoplasm of upper lobe, left bronchus or lung Oncology: Subj Interval history: Pt appears confused, c/o back pain - Constitutional Exam: min distress due to pain o nO2 - Head Head exam: Present: atraumatic, normal inspection - Eye Eye exam: Present: sclera anicteric - ENT Additional comments: O2Nc, dry - Respiratory Additional comments: Charlie wheeze - GI/Abdominal GI/Abdominal exam: Present: normal bowel sounds, soft - Extremities Exam Extremities exam: Present: normal inspection - Neurological Exam Neurological exam: Present: altered Additional comments: somnolent, answers questions, moves all 4 ext - Skin Skin exam: Present: dry, warm Oncology: Obj Data - Labs CBC & Chem 7: 01/03/19 04:23 01/03/19 04:23 Consult Discharge Plan - Plan Additional Instructions: Home Health has been set up through [facility]. They will contact you with a date and time to complete admission. If you need to contact them please call #[phone] or #[phone]. Referrals: Chandni Keating CNP [Primary Care Provider] - 01/08/19 11:40 am Inpatient Charges Provider: Dr. Denise Cornell Follow up - Inpatient: [id number]
--- NOTE | 2019-01-04 11:32 | Internal Med Progress Note ---
Hospitalist Progress Note - Encounter Date of Encounter: 01/04/19 Time of Encounter: 08:40 - Subjective Interval History: No acute events overnight. Patient seen and examined. He reports cough, back pain and dyspnea on exertion. Denies chest pain, fever, chills, nausea and vomiting. - Exam Vitals: Temp Pulse Resp BP Pulse Ox 36.4 C L 75 16 109/64 92 01/04/19 07:19 01/04/19 11:07 01/04/19 11:07 01/04/19 11:07 01/04/19 11:07 Exam: GENERAL: Not in distress. Alert and Oriented HEENT: EOMI, PERRLA MOUTH: Moist oral mucosa NECK:No JVD, No lymph nodes. CHEST AND LUNGS: Bilateral wheezing, transmitted sounds and few fine bibasal crackles. HEART: S1 and S2 normal, no murmurs ABDOMEN: Soft, nontender, no organomegaly SKIN: Normal: hyperpigmented macules on upper extremities. EXTREMITIES: No deformity, no edema, no tenderness, no joint swelling or clubbing NEUROLOGICAL: Normal cognition, normal motor and sensory exam. - Assessment and Plan (1) Pulmonary edema Current Visit: Yes Status: Acute Assessment and Plan: Patient has wheezes and fine bibasal crackles. CXR after lung biopsy 2 days ago showed pulmonary congestion Patient not making a lot of urine in last 24 hours. Atrial flutter with RVR yesterday also likely to have worsened pulmonary congestion. Will give IV Lasix 20mg once. (2) Atrial flutter with rapid ventricular response Current Visit: Yes Status: Resolved Assessment and Plan: Heart rate in 70s Patient asymptomatic Patient responding to digoxin Cardiology on consult (3) Pneumonia Current Visit: Yes Status: Acute Assessment and Plan: Afebrile overnight Continue Ceftriaxone and azithromycin (4) Lung mass Current Visit: Yes Status: Acute Assessment and Plan: Patient underwent uneventful lung biopsy 01/02/19 Awaiting results Will monitor. (5) Hypertension Current Visit: Yes Status: Acute Assessment and Plan: Continue home meds. (6) Diabetes mellitus Current Visit: Yes Status: Acute Assessment and Plan: Accu-Cheks Insulin sliding scale (7) Depression Current Visit: Yes Status: Chronic Assessment and Plan: Patient is a [place] with a history of depression. We will continue home Wellbutrin. (8) Hyperlipidemia Current Visit: Yes Status: Chronic Assessment and Plan: Continue statin. DVT Prophylaxis: SQ Heparin - Time Spent with Patient Total time spent is greater than 50% in coordination of care (as documented) at patient's floor/unit and/or counseling patient: Internal Medicine: Result - Labs CBC & Chem 7: 01/03/19 04:23 01/03/19 04:23 - ABG Interpretation ABG results: PT/INR, D-dimer PT 14.0 Seconds (9.4-12.1) H 12/31/18 16:36 - Impressions Impressions Echocardiogram 01/03/19 10:55 Impressions: Technically sub-optimal due to poor echocardiographic windows. LVEF 70%. Normal LV chamber size and wall thickness. Indeterminate diastolic function. Right ventricle was not well visualized. Grossly, it is normal in function. Borderline pulmonary hypertension identified. Estimated RVSP 35 mmHg. No obvious significant valvular dysfunction. Findings: Study Quality * Technically sub-optimal due to poor echocardiographic windows. ECG Findings * Difficult to determine rhythm, tachycardia noted. Left Ventricle * LVEF 70%. * Normal LV chamber size and wall thickness. * Indeterminate diastolic function. Right Ventricle * Right ventricle was not well visualized. Grossly, it is normal in function. Left Atrium * Mildly dilated left atrium. Right Atrium * Mildly dilated right atrium. Interatrial Septum * Interatrial septum not well evaluated. Aortic Valve * Aortic valve not well visualized. * No aortic regurgitation. * No aortic stenosis. Mitral Valve * Normal mitral valve structure and function. * No mitral regurgitation. * No mitral stenosis. Tricuspid Valve * Normal tricuspid valve structure and function. * Trace tricuspid regurgitation. * Borderline pulmonary hypertension identified. Estimated RVSP 35 mmHg. Pulmonic Valve * Pulmonic valve is not well visualized. Aorta * Normally sized aortic root. Pericardium * The pericardium appears normal. IVC * The IVC is not well evaluated. Pulmonary Artery * Pulmonary artery not well visualized. Consult Discharge Plan - Plan Additional Instructions: Home Health has been set up through [facility]. They will contact you with a date and time to complete admission. If you need to contact them please call #[phone] or #[phone]. 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
[2019-01-04] MEDS: cefTRIAXone 2,000 MG in Water for inj. (sterile) 20 ML IVP SCH (12:32)
--- NOTE | 2019-01-04 13:11 | Cardiology Consult Note ---
Date of Encounter: 01/04/19 Time of Encounter: 11:30 Assessment and Plan (1) Paroxysmal atrial fibrillation with rapid ventricular response Current Visit: Yes Status: Acute Currently in NSR. Continue beta blockade for rate control. Would anticoagulate when able- [id number] score 3. Echocardiogram with normal LV function, no significant valvular heart disease. (2) Hypertension Current Visit: No Status: Chronic Qualifiers: Hypertension type: essential hypertension Qualified Code(s): I10 - Essential (primary) hypertension (3) Lung mass Current Visit: Yes Status: Acute Per oncology. Discussion w patient/family: The assessment and plan as outlined above was discussed with the patient and/or family members who expressed understanding and agreement. All questions were answered. Thank you for involving us in the care of your patient. Please call with any questions. History of Present Illness Consult date: 01/04/19 Requesting physician: Denise Arreguin Consult reason: a flutter with RVR Chief complaint: weakness History of present illness: Mr. Gayle is a 73 year old male with HTN, DM, presents to [facility] ED with c/o generalized weakness. Pt drowsy on exam today. Pt denies CP. Has SPARKS. 20lb weight loss over past 2 months. Longstanding history of palpitations. Recently found to have lung mass- currently being evaluated by oncology for possible metastatic lung CA. Had biopsy- results pending. While hospitalized, noted to have a fib/flutter with RVR on telemetry. Asym ptomatic. Currently in NSR. No known history of a fib, has history of PVCs per past records. -------- Echocardiogram 01/03/19: Technically sub-optimal due to poor echocardiographic windows. LVEF 70%. Normal LV chamber size and wall thickness. Indeterminate diastolic function. Right ventricle was not well visualized. Grossly, it is normal in function. Borderline pulmonary hypertension identified. Estimated RVSP 35 mmHg. No obvious significant valvular dysfunction. Past Med Surg Social Fam HX - Past Medical History Source: old records reviewed Medical history: cancer, diabetes, GERD, hypertension Psychiatric history: depression - Past Surgical History Additional surgical history: Lt leg surgery - Social History Smoking Status: Former smoker Smokeless Tobacco Status: Yes Alcohol use: none Drug use: none - Family History Father Living Status: Age at : 82 Cause of : colon cancer Medications and Allergies Diltiazem CD (24hr) [Cardizem CD] 240 mg PO DAILY 12/20/18 [History] GlipiZIDE [Glipizide Xl] 5 mg PO BID 12/20/18 [History] Losartan Potassium [Cozaar] 50 mg PO DAILY 12/20/18 [History] Metoprolol XL (24 HR) Succ [Toprol XL] 25 mg PO BID 12/20/18 [History] Simvastatin [Zocor] 40 mg PO HS 12/20/18 [History] Triamterene/HCTZ 37.5/25mg [Dyazide] 1 tab PO DAILY 12/20/18 [History] buPROPion HCl [Bupropion HCl Sr] 200 mg PO BID 12/20/18 [History] clonazePAM [Clonazepam] 2 mg PO BID PRN 12/31/18 [History] raNITIdine HCl [Ranitidine HCl] 300 mg PO DAILY 12/31/18 [History] Allergy/AdvReac Type Severity Reaction Status Date / Time No Known Allergies Allergy Verified 12/20/18 16:46 All Systems Review: The remainder of the systems were reviewed and are negative - Cardiovascular Cardiovascular: as per HPI Physical Examination Vital Signs, Last 4 Hours Pulse Resp BP Pulse Ox 01/04/19 11:07 75 16 109/64 92 General: No Apparent Distress, Other (drowsy) HEENT: Atraumatic, Normocephaly, Mucus Membranes Moist Neck: No JVD, Normal carotid pulses Cardiac: Reg Rate and Rhythm, Normal S1 and S2, No Murmur Lungs: Other (b/l exp wheezes throughout) Abdomen: Soft, Non-Tender Extremities: No Clubbing, No Cyanosis, No Edema, Normal Pulses Results 01/03/19 04:23 01/03/19 04:23 - EKG Interpretation EKG results cardiology: personally reviewed (EKG- a flutter with RVR, RBBB) Consult Discharge Plan - Plan Additional Instructions: Home Health has been set up through [facility]. They will contact you with a date and time to complete admission. If you need to contact them please call #[phone] or #[phone]. Referrals: Chandni Keating CNP [Primary Care Provider] - 01/08/19 11:40 am CHADS2-VASC Score - Score Age: 65-74 Sex: Male CHF History: No Hypertension history: Yes Stroke/TIA/Thromboembolism Hx: No Vascular disease history: No Diabetes history: Yes Score: 3
[2019-01-05 01:41] LABS: Basophils % 0.3 %; Eosinophils # 0.4 K/mcL (0.0-0.6); Eosinophils % 3.3 %; Hematocrit 30.2 % (37.5-50.1); Hemoglobin 9.5 g/dL (12.9-16.9); Immature Granulocytes % 0.7 % (0-4); Lymphocytes # 1.1 K/mcL (0.6-4.6); Mean Corpuscular HGB Conc 31.5 g/dL (31.6-35.5); Mean Corpuscular Volume 92.1 fL (83.0-100.0); Mean Platelet Volume 9.1 fL (9.4-12.4); Monocytes # 1.3 K/mcL (0.0-1.3); Monocytes % 11.3 %; Neutrophils # 8.2 K/mcL (1.6-8.9); Platelet Count 360 K/mcL (140-400); Red Blood Count 3.28 M/mcL (4.19-5.50); Segmented Neutrophils % 74.4 %; White Blood Count 11.1 K/mcL (4.3-11.1)
[2019-01-05 02:01] LABS: BUN/Creatinine Ratio 35 (6-26); Blood Urea Nitrogen 38 mg/dL (8-23); Calcium 8.6 mg/dL (8.6-10.3); Carbon Dioxide 26 mEq/L (23-29); Chloride 99 mEq/L (98-107); Glucose 185 mg/dL (70-105); Osmolality,Calculated 290 (280-300); Potassium 3.4 mEq/L (3.5-5.1); Sodium 133 mEq/L (136-145); eGFR For African Americans > 60 (> 60); eGFR For Non-African Americans > 60 (> 60)
[2019-01-05] MEDS: *HR* OxyCODONE/APAP 5/325 TABLET PO PRN ×2 (05:55→15:57)
[2019-01-05] MEDS: *HR* Heparin 5,000 UNIT/ML VIAL SQ SCH ×3 (05:56→22:24)
[2019-01-05] MEDS: Diltiazem CD (24hr) 240 MG CAPSULE PO SCH (07:34)
[2019-01-05] MEDS: Benzonatate 100 MG CAPSULE PO SCH ×3 (07:34→22:23)
[2019-01-05] MEDS: Famotidine 20 MG TABLET PO SCH (07:34)
[2019-01-05] MEDS: BuPROPion SR (12 HR) 100 MG TABLET PO SCH ×2 (07:34→22:23)
[2019-01-05] MEDS: Azithromycin 250 MG TABLET PO SCH (07:35)
[2019-01-05] MEDS: Nicotine 7 MG PATCH.TD24 TD SCH (07:35)
[2019-01-05] MEDS: Metoprolol XL (24 HR) Succ 25 MG TAB.ER.24H PO SCH ×2 (07:35→22:31)
[2019-01-05] MEDS: Insulin LISPRO 300 UNITS/3 ML VIAL SQ SCH ×4 (07:36→21:51)
--- NOTE | 2019-01-05 10:05 | Internal Med Progress Note ---
Hospitalist Progress Note - Encounter Date of Encounter: 01/05/19 Time of Encounter: 08:00 - Subjective Interval History: No acute events overnight. Patient seen sitting at bedside saturating well without intranasal oxygen. He admits that his breathing is better but he still gets shortness of breath on exertion. He denies fever, chills, chest pain, palpi tations, nausea and vomiting. - Exam Vitals: Temp Pulse Resp BP Pulse Ox 36.9 C 87 18 122/58 92 01/05/19 07:30 01/05/19 07:30 01/05/19 07:30 01/05/19 07:30 01/05/19 07:30 Exam: GENERAL: Not in distress. Alert and Oriented HEENT: EOMI, PERRLA MOUTH: Moist oral mucosa NECK:No JVD, No lymph nodes. CHEST AND LUNGS: Bronchial breath sounds in left middle zone posteriorly. No wheezes or crackles today. HEART: S1 and S2 normal, no murmurs ABDOMEN: Soft, nontender, no organomegaly SKIN: Normal: hyperpigmented macules on upper extremities. EXTREMITIES: No deformity, no edema, no tenderness, no joint swelling or clubbing NEUROLOGICAL: Normal cognition, normal motor and sensory exam. - Assessment and Plan (1) Pulmonary edema Current Visit: Yes Status: Resolved Assessment and Plan: Patient is breathig better today. Saturating 92% on room air No crackles or wheezing on lung exam Will monitor (2) Atrial flutter with rapid ventricular response Current Visit: Yes Status: Resolved Assessment and Plan: Currently in sinus rhythm CHADVasc score of 3 for age, HTN and DM Cardio following. Considering anticoagulation. (3) Pneumonia Current Visit: Yes Status: Acute Assessment and Plan: WBC 11.1<12.8 Afebrile overnight Continue Ceftriaxone and azithromycin (4) Lung mass Current Visit: Yes Status: Acute Assessment and Plan: Patient underwent uneventful lung biopsy 01/02/19 Awaiting results Will monitor. (5) Hypertension Current Visit: No Status: Chronic Assessment and Plan: Continue home meds. (6) Diabetes mellitus Current Visit: Yes Status: Acute Assessment and Plan: Accu-Cheks Insulin sliding scale (7) Depression Current Visit: Yes Status: Chronic Assessment and Plan: Patient is a [place] with a history of depression. We will continue home Wellbutrin. (8) Hyperlipidemia Current Visit: Yes Status: Chronic Assessment and Plan: Continue statin. DVT Prophylaxis: SQ Heparin - Time Spent with Patient Total time spent is greater than 50% in coordination of care (as documented) at patient's floor/unit and/or counseling patient: Internal Medicine: Result - Labs CBC & Chem 7: 01/05/19 00:51 01/05/19 00:51 Labs: Short CBC 01/05/19 Range/Units 00:51 WBC 11.1 (4.3-11.1) K/mcL Hgb 9.5 L (12.9-16.9) g/dL Hct 30.2 L (37.5-50.1) % Plt Count 360 (140-400) K/mcL Neutrophils # 8.2 (1.6-8.9) K/mcL BMP 01/05/19 00:51 Sodium 133 L Potassium 3.4 L Chloride 99 Carbon Dioxide 26 BUN 38 H Creatinine 1.09 Glucose 185 H Calcium 8.6 - ABG Interpretation ABG results: PT/INR, D-dimer PT 14.0 Seconds (9.4-12.1) H 12/31/18 16:36 Consult Discharge Plan - Plan Additional Instructions: Home Health has been set up through [facility]. They will contact you with a date and time to complete admission. If you need to contact them please call #[phone] or #[phone]. 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
[2019-01-05] MEDS: cefTRIAXone 2,000 MG in Water for inj. (sterile) 20 ML IVP SCH (12:25)
[2019-01-06] MEDS: *HR* OxyCODONE/APAP 5/325 TABLET PO PRN (02:24)
[2019-01-06] MEDS: *HR* Heparin 5,000 UNIT/ML VIAL SQ SCH (05:41)
[2019-01-06 08:07] VITALS: BP 127/66
[2019-01-06 08:46] LABS: Basophils % 0.3 %; Eosinophils # 0.1 K/mcL (0.0-0.6); Hematocrit 33.1 % (37.5-50.1); Hemoglobin 10.8 g/dL (12.9-16.9); Immature Granulocytes % 0.5 % (0-4); Lymphocytes # 1.1 K/mcL (0.6-4.6); Mean Corpuscular HGB Conc 32.6 g/dL (31.6-35.5); Mean Corpuscular Hemoglobin 29.1 pg (28.0-33.3); Mean Corpuscular Volume 89.2 fL (83.0-100.0); Mean Platelet Volume 8.8 fL (9.4-12.4); Monocytes # 1.3 K/mcL (0.0-1.3); Monocytes % 12.6 %; Neutrophils # 7.6 K/mcL (1.6-8.9); Platelet Count 466 K/mcL (140-400); Red Blood Count 3.71 M/mcL (4.19-5.50); Red Cell Distribution Width 14.9 % (11.5-14.5); Segmented Neutrophils % 74.6 %; White Blood Count 10.2 K/mcL (4.3-11.1)
[2019-01-06] MEDS: clonazePAM 1 MG TABLET PO PRN (08:46)
[2019-01-06] MEDS: BuPROPion SR (12 HR) 100 MG TABLET PO SCH (08:46)
[2019-01-06] MEDS: Metoprolol XL (24 HR) Succ 25 MG TAB.ER.24H PO SCH (08:46)
[2019-01-06] MEDS: Benzonatate 100 MG CAPSULE PO SCH (08:46)
[2019-01-06] MEDS: Diltiazem CD (24hr) 240 MG CAPSULE PO SCH (08:46)
[2019-01-06] MEDS: Azithromycin 250 MG TABLET PO SCH (08:46)
[2019-01-06] MEDS: Famotidine 20 MG TABLET PO SCH (08:47)
[2019-01-06] MEDS: Nicotine 7 MG PATCH.TD24 TD SCH (08:51)
[2019-01-06] MEDS: Insulin LISPRO 300 UNITS/3 ML VIAL SQ SCH (08:56)
[2019-01-06 09:03] LABS: BUN/Creatinine Ratio 30 (6-26); Blood Urea Nitrogen 27 mg/dL (8-23); Calcium 9.2 mg/dL (8.6-10.3); Carbon Dioxide 26 mEq/L (23-29); Chloride 97 mEq/L (98-107); Glucose 234 mg/dL (70-105); Osmolality,Calculated 289 (280-300); Potassium 3.6 mEq/L (3.5-5.1); Sodium 133 mEq/L (136-145); eGFR For African Americans > 60 (> 60); eGFR For Non-African Americans > 60 (> 60)
--- NOTE | 2019-01-06 10:58 | Discharge Summary ---
Date of Encounter: 01/06/19 Time of Encounter: 10:55 - Discharge Diagnosis (1) Pneumonia Priority: Primary Status: Acute Qualifiers: Pneumonia type: due to unspecified organism Laterality: left Lung location: upper lobe of lung Qualified Code(s): J18.1 - Lobar pneumonia, unspecified organism (2) Pulmonary edema Priority: Secondary Status: Resolved Qualifiers: Chronicity: acute Qualified Code(s): J81.0 - Acute pulmonary edema (3) Atrial flutter with rapid ventricular response Priority: Secondary Status: Resolved (4) Lung mass Priority: Secondary Status: Acute (5) Hypertension Priority: Secondary Status: Chronic Qualifiers: Hypertension type: essential hypertension Qualified Code(s): I10 - Essential (primary) hypertension (6) Diabetes mellitus Priority: Secondary Status: Acute Qualifiers: Diabetes mellitus type: type 2 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 mcfp use Diabetes mellitus complication status: without complication Qualified Code(s): E11.9 - Type 2 diabetes mellitus without complications (7) Depression Priority: Secondary Status: Chronic Qualifiers: Depression Type: major depressive disorder Major depression recurrence: recurrent Active/Remission status: in remission of unspecified degree Qualified Code(s): F33.40 - Major depressive disorder, recurrent, in remission, unspecified (8) Hyperlipidemia Priority: Secondary Status: Chronic Qualifiers: Hyperlipidemia type: mixed hyperlipidemia Qualified Code(s): E78.2 - Mixed hyperlipidemia Hospital course: Mr. Gayle is a 73 year old male with a history of left lung mass presented with cough, fever, chills and worsening SOB. He was managed with antibiotics for pneumonia based on imaging findings. Left lung mass was biopsy by IR under CT guidance. Final report pending. Patient will be transferred to SNF for now for rehab since he has also been falling frequently. During his hospital stay patient went into A. fib flutter with RVR which converted to sinus rhythm on digoxin. He has a CHADVasc score of 3 but particularly so no being started now on account of frequent falls recently. The decision will be reconsidered if patient's falls reduce after rehabilitation. Follow up with [facility] as outpatient. Discharge discussed with: patient, family, nurse, social work, case management, car sales consultant - Time Spent with Patient Total time spent providing and/or coordinating discharge services: Time spent: Greater than 30 minutes (52 minutes) - Discharge Medications Prescriptions: New Amoxicillin/Clavulanate [Augmentin] 875 mg PO BIDWM #10 tablet Continued clonazePAM [Clonazepam] 2 mg PO BID PRN PRN Reason: Anxiety raNITIdine HCl [Ranitidine HCl] 300 mg PO DAILY Diltiazem CD (24hr) [Cardizem CD] 240 mg PO DAILY Losartan Potassium [Cozaar] 50 mg PO DAILY buPROPion HCl [Bupropion HCl Sr] 200 mg PO BID Triamterene/HCTZ 37.5/25mg [Dyazide] 1 tab PO DAILY Simvastatin [Zocor] 40 mg PO HS GlipiZIDE [Glipizide Xl] 5 mg PO BID Metoprolol XL (24 HR) Succ [Toprol Xl] 25 mg PO BID Home Medications: Diltiazem CD (24hr) [Cardizem CD] 240 mg PO DAILY 12/20/18 [History] GlipiZIDE [Glipizide Xl] 5 mg PO BID 12/20/18 [History] Losartan Potassium [Cozaar] 50 mg PO DAILY 12/20/18 [History] Metoprolol XL (24 HR) Succ [Toprol Xl] 25 mg PO BID 12/20/18 [History] Simvastatin [Zocor] 40 mg PO HS 12/20/18 [History] Triamterene/HCTZ 37.5/25mg [Dyazide] 1 tab PO DAILY 12/20/18 [History] buPROPion HCl [Bupropion HCl Sr] 200 mg PO BID 12/20/18 [History] clonazePAM [Clonazepam] 2 mg PO BID PRN 12/31/18 [History] raNITIdine HCl [Ranitidine HCl] 300 mg PO DAILY 12/31/18 [History] Amoxicillin/Clavulanate [Augmentin] 875 mg PO BIDWM #10 tablet 01/06/19 [Rx] Allergies/Adverse Reactions: Allergy/AdvReac Type Severity Reaction Status Date / Time No Known Allergies Allergy Verified 12/20/18 16:46 Date of admission: 01/01/19 15:00 Primary care physician: Chandni Keating CNP Consults: 01/01/19 08:14 Consult to Nurse Navigator [CONS] Routine Comment: PNEUMONIA 01/01/19 13:25 Consult to Interventional Radiology [CONS] Stat Consulting Provider: Radiology Interventional Cols Reason for Consult: CT guided lung biopsy. Also to assess igf pt can have an mri of the brain. Foreign metallic body in left hand. Call Completed: Yes 01/01/19 13:52 Consult to Oncology Hematology [CONS] Routine Consulting Provider: Jean Calderon Reason for Consult: Lung Mass Call Completed: No 01/03/19 04:32 Consult to Occupational Therapy [CONS] Routine Comment: Evaluate, develop and implement POC Reason for Consult: weakness Does patient have active BEDREST order?: No Is patient medically & hemodynamically stable?: Yes Patient assessed for mobility or mobilized this visit?: Yes Consult to Physical Therapy [CONS] Routine Comment: Evaluate, develop and implement POC Reason for Consult: weakness Does patient have active BEDREST order?: No Is patient medically & hemodynamically stable?: Yes Patient assessed for mobility or mobilized this visit?: Yes 01/03/19 12:18 Consult to Cardiology [CONS] Routine Comment: Consulting Provider: Cardiology Brandee Reason for Consult: Aflutter with RVR Call Completed: No - Constitutional Vitals: Temp Pulse Resp BP Pulse Ox 36.7 C 102 19 127/66 99 01/06/19 08:05 01/06/19 08:45 01/06/19 08:05 01/06/19 08:05 01/06/19 08:45 Exam: GENERAL: Not in distress. Alert and Oriented HEENT: EOMI, PERRLA MOUTH: Moist oral mucosa NECK:No JVD, No lymph nodes. CHEST AND LUNGS: Bronchial breath sounds in left middle zone posteriorly. HEART: S1 and S2 normal, no murmurs ABDOMEN: Soft, nontender, no organomegaly SKIN: Normal color, no rashes, no lesions EXTREMITIES: No deformity, no edema, no tenderness, no joint swelling or clubbing NEUROLOGICAL: Normal cognition, normal motor and sensory exam. - Patient Status Disposition: Transfer SNF Condition: Fair Functional capacity at discharge: uses cane/walker Overall status at discharge: patient is progressing back to baseline - Discharge Instructions Follow Up With: Chandni Keating CNP [Primary Care Provider] - 01/08/19 11:40 am Shannan Zarate MD [Partnered Physician] - Additional Instructions: Home Health has been set up through [facility]. They will contact you with a date and time to complete admission. If you need to contact them please call #[phone] or #[phone]. - Diet and Activity Activity: as per physical therapy, increase activity as tolerated Diet: advance to your usual diet
--- NOTE | 2019-01-06 11:16 | Physician Discharge Referral ---
ExtendedCare Referral Info Transfer To: SNF Institutional Level of Care: Skilled - Diagnosis (1) Pneumonia Priority: Primary Status: Acute (2) Pulmonary edema Priority: Secondary Status: Resolved (3) Atrial flutter with rapid ventricular response Priority: Secondary Status: Resolved (4) Lung mass Priority: Secondary Status: Acute (5) Hypertension Priority: Secondary Status: Chronic (6) Diabetes mellitus Priority: Secondary Status: Chronic (7) Depression Priority: Secondary Status: Chronic (8) Hyperlipidemia Priority: Secondary Status: Chronic - Transfer Medications Prescriptions: Amoxicillin/Clavulanate [Augmentin] 875 mg PO BIDWM #10 tablet Transmission Status: Pending to [facility] Medications: Diltiazem CD (24hr) [Cardizem CD] 240 mg PO DAILY 12/20/18 [History] GlipiZIDE [Glipizide Xl] 5 mg PO BID 12/20/18 [History] Losartan Potassium [Cozaar] 50 mg PO DAILY 12/20/18 [History] Metoprolol XL (24 HR) Succ [Toprol Xl] 25 mg PO BID 12/20/18 [History] Simvastatin [Zocor] 40 mg PO HS 12/20/18 [History] Triamterene/HCTZ 37.5/25mg [Dyazide] 1 tab PO DAILY 12/20/18 [History] buPROPion HCl [Bupropion HCl Sr] 200 mg PO BID 12/20/18 [History] clonazePAM [Clonazepam] 2 mg PO BID PRN 12/31/18 [History] raNITIdine HCl [Ranitidine HCl] 300 mg PO DAILY 12/31/18 [History] Amoxicillin/Clavulanate [Augmentin] 875 mg PO BIDWM #10 tablet 01/06/19 [Rx] Allergies/Adverse Reactions: Allergy/AdvReac Type Severity Reaction Status Date / Time No Known Allergies Allergy Verified 12/20/18 16:46 - Respiratory Orders Smoking Cessation: Smoking cessation has been advised. For more information, call the [employer] Tobacco Quit Line at 3-051-JIDF-NOW. - Rehabiliation Orders Rehab Orders: Evaluation for Physical Therapy, Evaluation for Occupational Therapy CERTIFICATION: I certify that the transfer of the above named patient to an Extended Care Facility is necessary for the continuing treatment of the diagnosis listed. The above information is true and accurate reflection of patient's current condition. Confidential - Redisclosure prohibited without a patient's written consent.
== END 2019-01-06 12:32 | DRG 193 ==
LOC: 3BNU 11:45 → EMEROOARM 11:45 → SUATTDRO 14:36 → 3BNU 14:53
PROVIDERS: ADMIT Internal Medicine; ATTEND Internal Medicine

== ENCOUNTER 2019-01-15 21:11 | Inpatient (IN) ==
[2019-01-16 00:21] LABS: Basophils # 0.1 K/mcL (0.0-0.2); Basophils % 0.3 %; Eosinophils # 0.1 K/mcL (0.0-0.6); Eosinophils % 0.3 %; Hemoglobin 9.3 g/dL (12.9-16.9); Immature Granulocytes % 0.5 % (0-4); Lymphocytes # 1.8 K/mcL (0.6-4.6); Lymphocytes % 11.5 %; Mean Corpuscular HGB Conc 32.1 g/dL (31.6-35.5); Mean Corpuscular Hemoglobin 29.2 pg (28.0-33.3); Mean Corpuscular Volume 91.2 fL (83.0-100.0); Mean Platelet Volume 8.8 fL (9.4-12.4); Monocytes # 1.7 K/mcL (0.0-1.3); Monocytes % 10.9 %; Platelet Count 372 K/mcL (140-400); Red Blood Count 3.18 M/mcL (4.19-5.50); Red Cell Distribution Width 15.3 % (11.5-14.5); Segmented Neutrophils % 76.5 %; White Blood Count 15.9 K/mcL (4.3-11.1)
[2019-01-16 00:22] LABS: Neutrophils # 12.2 K/mcL (1.6-8.9)
[2019-01-16 00:29] LABS: INR 1.2; Prothrombin Time 13.4 Seconds (9.4-12.1)
[2019-01-16 00:41] LABS: Alanine Aminotransferase 10 Units/L (7-52); Albumin 2.9 g/dL (3.5-5.7); Albumin/Globulin Ratio 1.1 (1.1-2.2); Alkaline Phosphatase 94 Units/L (34-104); Aspartate Amino Transferase 16 Units/L (13-39); BUN/Creatinine Ratio 29 (6-26); Bilirubin,Total 0.8 mg/dL (0.3-1.0); Blood Urea Nitrogen 20 mg/dL (8-23); Calcium 8.5 mg/dL (8.6-10.3); Carbon Dioxide 28 mEq/L (23-29); Chloride 92 mEq/L (98-107); Globulin 2.6 g/dL (2.4-3.5); Glucose 198 mg/dL (70-105); Osmolality,Calculated 272 (280-300); Potassium 3.9 mEq/L (3.5-5.1); Sodium 127 mEq/L (136-145); Total Protein 5.5 g/dL (6.4-8.9); eGFR For African Americans > 60 (> 60); eGFR For Non-African Americans > 60 (> 60)
[2019-01-16 00:43] LABS: Troponin I < 0.03 ng/mL (< 0.04)
[2019-01-16 01:26] LABS: Bilirubin,Urine Negative (Negative); Blood,Urine Negative (Negative); Clarity,Urine Clear (Clear); Color,Urine Yellow (Yellow); Glucose,Urine (UA) 250 mg/dL (Normal); Ketones,Urine Negative (Negative); Leukocyte Esterase,Urine Negative (Negative); Nitrite,Urine Negative (Negative); PH,Urine 6.5 pH Units (5.0-8.0); Protein,Urine Trace mg/dL (Neg-Trace); Specific Gravity,Urine 1.022 (1.010-1.025); Urobilinogen,Urine Normal (Normal)
[2019-01-16 03:45] LABS: Basophils % 0.2 %; Eosinophils % 0.1 %; Hematocrit 30.5 % (37.5-50.1); Hemoglobin 9.6 g/dL (12.9-16.9); Immature Granulocytes % 0.6 % (0-4); Lymphocytes % 5.8 %; Mean Corpuscular HGB Conc 31.5 g/dL (31.6-35.5); Mean Corpuscular Hemoglobin 28.5 pg (28.0-33.3); Mean Corpuscular Volume 90.5 fL (83.0-100.0); Mean Platelet Volume 8.8 fL (9.4-12.4); Monocytes # 1.9 K/mcL (0.0-1.3); Monocytes % 10.6 %; Neutrophils # 14.6 K/mcL (1.6-8.9); Platelet Count 404 K/mcL (140-400); Red Blood Count 3.37 M/mcL (4.19-5.50); Red Cell Distribution Width 15.3 % (11.5-14.5); Segmented Neutrophils % 82.7 %; White Blood Count 17.7 K/mcL (4.3-11.1)
[2019-01-16 04:02] LABS: BUN/Creatinine Ratio 28 (6-26); Blood Urea Nitrogen 20 mg/dL (8-23); Calcium 8.7 mg/dL (8.6-10.3); Carbon Dioxide 29 mEq/L (23-29); Chloride 93 mEq/L (98-107); Glucose 262 mg/dL (70-105); Osmolality,Calculated 276 (280-300); Potassium 4.1 mEq/L (3.5-5.1); Sodium 127 mEq/L (136-145); eGFR For African Americans > 60 (> 60); eGFR For Non-African Americans > 60 (> 60)
[2019-01-16] MEDS ORDERED: Naloxone 0.4 MG/ML INJ IVP PRN (05:58)
[2019-01-16 06:11] LABS: Creatinine,Urine 94 mg/dL; Sodium, Urine < 10.0 mEq/L
[2019-01-16] MEDS ORDERED: 0.9 % Sodium Chloride 1,000 ML IVC SCH ×2 (06:15→12:13)
[2019-01-16] MEDS ORDERED: Dextrose Gel 15 GM/37.5 ML TUBE PO PRN ×2 (07:04)
[2019-01-16] MEDS ORDERED: D5% in Water 1,000 ML IVC PRN (07:04)
[2019-01-16] MEDS ORDERED: *HR* Dextrose 50 % in Water (Syg) 50 ML SYRINGE IVP PRN (07:04)
[2019-01-16] MEDS ORDERED: Vancomycin (wt based) 1,000 MG VIAL IVPB SCH (08:00)
[2019-01-16] MEDS: Azithromycin 500 MG in 0.9 % Sodium Chloride 250 ML IVPB SCH (09:07)
[2019-01-16] MEDS: cefTRIAXone 1,000 MG in Water for inj. (sterile) 10 ML IVP ONE ×2 (09:08→12:00)
[2019-01-16 11:11] LABS: BUN/Creatinine Ratio 27 (6-26); Blood Urea Nitrogen 18 mg/dL (8-23); Calcium 8.3 mg/dL (8.6-10.3); Carbon Dioxide 28 mEq/L (23-29); Chloride 95 mEq/L (98-107); Glucose 248 mg/dL (70-105); Osmolality,Calculated 278 (280-300); Potassium 4.3 mEq/L (3.5-5.1); Sodium 129 mEq/L (136-145); eGFR For African Americans > 60 (> 60); eGFR For Non-African Americans > 60 (> 60)
[2019-01-16] MEDS ORDERED: cefTRIAXone 2,000 MG in 0.9 % Sodium Chloride Mini Bag 100 ML IVPB ONE (11:16)
[2019-01-16] MEDS ORDERED: Insulin LISPRO 300 UNITS/3 ML VIAL SQ SCH (12:00)
[2019-01-16] MEDS: *HR* Heparin 5,000 UNIT/ML VIAL SQ SCH ×2 (13:49→21:36)
[2019-01-16] MEDS: Diltiazem CD (24hr) 240 MG CAPSULE PO SCH (13:50)
[2019-01-16] MEDS: Acetaminophen 325 MG TABLET PO PRN (14:20)
[2019-01-16] MEDS: Insulin LISPRO 300 UNITS/3 ML VIAL SQ SCH ×2 (16:54→21:41)
[2019-01-16] MEDS ORDERED: *HR* Metoprolol 5 MG/5 ML VIAL IVP ONE (17:39)
[2019-01-16] MEDS ORDERED: Metoprolol XL (24 HR) Succ 50 MG TAB.ER.24H PO SCH (18:03)
[2019-01-16] MEDS: Metoprolol XL (24 HR) Succ 50 MG TAB.ER.24H PO SCH (19:40)
[2019-01-16] MEDS: Mirtazapine 15 MG TABLET PO SCH (21:36)
[2019-01-16] MEDS: BuPROPion SR (12 HR) 150 MG TABLET PO SCH (21:36)
[2019-01-17] MEDS ORDERED: Ipratropium/Albuterol Neb 3 ML IH PRN (03:58)
[2019-01-17 05:08] LABS: Basophils # 0.1 K/mcL (0.0-0.2); Basophils % 0.3 %; Eosinophils % 0.1 %; Hematocrit 29.8 % (37.5-50.1); Hemoglobin 9.1 g/dL (12.9-16.9); Immature Granulocytes % 0.5 % (0-4); Lymphocytes # 1.1 K/mcL (0.6-4.6); Lymphocytes % 6.3 %; Mean Corpuscular HGB Conc 30.5 g/dL (31.6-35.5); Mean Corpuscular Hemoglobin 28.2 pg (28.0-33.3); Mean Corpuscular Volume 92.3 fL (83.0-100.0); Mean Platelet Volume 9.3 fL (9.4-12.4); Monocytes # 1.9 K/mcL (0.0-1.3); Monocytes % 10.6 %; Neutrophils # 14.7 K/mcL (1.6-8.9); Platelet Count 385 K/mcL (140-400); Red Blood Count 3.23 M/mcL (4.19-5.50); Red Cell Distribution Width 15.4 % (11.5-14.5); Segmented Neutrophils % 82.2 %; White Blood Count 17.9 K/mcL (4.3-11.1)
[2019-01-17 05:15] LABS: INR 1.2; Prothrombin Time 14.1 Seconds (9.4-12.1)
[2019-01-17 05:32] LABS: Alanine Aminotransferase 9 Units/L (7-52); Albumin 2.9 g/dL (3.5-5.7); Alkaline Phosphatase 103 Units/L (34-104); Aspartate Amino Transferase 14 Units/L (13-39); BUN/Creatinine Ratio 33 (6-26); Bilirubin,Total 0.8 mg/dL (0.3-1.0); Blood Urea Nitrogen 19 mg/dL (8-23); Carbon Dioxide 27 mEq/L (23-29); Chloride 97 mEq/L (98-107); Globulin 2.8 g/dL (2.4-3.5); Glucose 222 mg/dL (70-105); Magnesium 1.9 mg/dL (1.6-2.6); Osmolality,Calculated 285 (280-300); Phosphorous 3.3 mg/dL (2.7-4.5); Sodium 133 mEq/L (136-145); Total Protein 5.7 g/dL (6.4-8.9); eGFR For African Americans > 60 (> 60); eGFR For Non-African Americans > 60 (> 60)
[2019-01-17] MEDS: *HR* Heparin 5,000 UNIT/ML VIAL SQ SCH ×3 (06:11→21:32)
[2019-01-17] MEDS: Metoprolol XL (24 HR) Succ 50 MG TAB.ER.24H PO SCH ×2 (07:52→09:20)
[2019-01-17] MEDS: BuPROPion SR (12 HR) 150 MG TABLET PO SCH ×2 (07:53→21:32)
[2019-01-17] MEDS: Diltiazem CD (24hr) 240 MG CAPSULE PO SCH (07:53)
[2019-01-17] MEDS: Insulin LISPRO 300 UNITS/3 ML VIAL SQ SCH ×4 (07:53→21:44)
[2019-01-17] MEDS: Azithromycin 500 MG in 0.9 % Sodium Chloride 250 ML IVPB SCH (08:01)
[2019-01-17] MEDS ORDERED: *HR* Metoprolol 5 MG/5 ML VIAL IVP ONE ×2 (08:51→17:29)
[2019-01-17] MEDS ORDERED: Metoprolol XL (24 HR) Succ 50 MG TAB.ER.24H PO ONE (08:52)
[2019-01-17] MEDS ORDERED: Ringers Solution, Lactated 1,000 ML IVC SCH (09:00)
[2019-01-17] MEDS ORDERED: cefTRIAXone 2,000 MG in 0.9 % Sodium Chloride Mini Bag 100 ML IVPB SCH (09:00)
[2019-01-17] MEDS ORDERED: Metoprolol XL (24 HR) Succ 50 MG TAB.ER.24H PO SCH (09:00)
[2019-01-17] MEDS: Ipratropium/Albuterol Neb 3 ML IH SCH ×3 (15:58→22:00)
[2019-01-17] MEDS: Acetaminophen 325 MG TABLET PO PRN (16:37)
[2019-01-17] MEDS: Mirtazapine 15 MG TABLET PO SCH (21:32)
[2019-01-18] MEDS ORDERED: *HR* Metoprolol 5 MG/5 ML VIAL IVP ONE ×3 (03:01→19:38)
[2019-01-18] MEDS: Ipratropium/Albuterol Neb 3 ML IH SCH (04:11)
[2019-01-18] MEDS: *HR* Heparin 5,000 UNIT/ML VIAL SQ SCH ×3 (06:01→22:45)
[2019-01-18] MEDS: Insulin LISPRO 300 UNITS/3 ML VIAL SQ SCH ×4 (08:02→22:20)
[2019-01-18] MEDS: Azithromycin 500 MG in 0.9 % Sodium Chloride 250 ML IVPB SCH (08:03)
[2019-01-18] MEDS: Metoprolol XL (24 HR) Succ 50 MG TAB.ER.24H PO SCH (08:09)
[2019-01-18] MEDS: BuPROPion SR (12 HR) 150 MG TABLET PO SCH ×2 (08:09→22:45)
[2019-01-18] MEDS: Diltiazem CD (24hr) 240 MG CAPSULE PO SCH (08:09)
[2019-01-18] MEDS ORDERED: 0.9 % Sodium Chloride 500 ML IVC ONE ×2 (08:33→08:40)
[2019-01-18] MEDS ORDERED: 0.9 % Sodium Chloride 500 ML ONE (08:35)
[2019-01-18 08:41] LABS: Folate 7.9 ng/mL (3.0-16.0)
[2019-01-18 08:43] LABS: % Iron Saturation 13 % (20-55); BUN/Creatinine Ratio 38 (6-26); Blood Urea Nitrogen 23 mg/dL (8-23); Calcium 9.1 mg/dL (8.6-10.3); Carbon Dioxide 25 mEq/L (23-29); Chloride 97 mEq/L (98-107); Ferritin > 1500 ng/mL (20-250); Glucose 246 mg/dL (70-105); Iron 25 mcg/dL (65-175); Osmolality,Calculated 288 (280-300); Potassium 4.1 mEq/L (3.5-5.1); Sodium 133 mEq/L (136-145); Transferrin 140 mg/dL (203-362); eGFR For African Americans > 60 (> 60); eGFR For Non-African Americans > 60 (> 60)
[2019-01-18] MEDS: Piperacillin/Tazobactam 3.375 GM in 0.9 % Sodium Chloride Mini Bag 100 ML IVPB SCH ×2 (09:19→16:54)
[2019-01-18] MEDS ORDERED: Isovue-370 500 ML BOTTLE IVP ONE (09:53)
[2019-01-18] MEDS: Levalbuterol Neb 0.63 MG/3 ML IH SCH ×3 (10:31→22:18)
[2019-01-18 10:36] LABS: Basophils % 0.3 %; Hematocrit 25.7 % (37.5-50.1); Immature Granulocytes % 0.6 % (0-4); Lymphocytes # 1.3 K/mcL (0.6-4.6); Lymphocytes % 9.3 %; Mean Corpuscular HGB Conc 31.1 g/dL (31.6-35.5); Mean Corpuscular Hemoglobin 28.9 pg (28.0-33.3); Mean Corpuscular Volume 92.8 fL (83.0-100.0); Mean Platelet Volume 8.8 fL (9.4-12.4); Monocytes # 1.5 K/mcL (0.0-1.3); Monocytes % 11.2 %; Neutrophils # 10.5 K/mcL (1.6-8.9); Platelet Count 388 K/mcL (140-400); Red Blood Count 2.77 M/mcL (4.19-5.50); Red Cell Distribution Width 15.6 % (11.5-14.5); Segmented Neutrophils % 78.6 %; White Blood Count 13.4 K/mcL (4.3-11.1)
[2019-01-18] MEDS ORDERED: *HR* Metoprolol 5 MG/5 ML VIAL IVP PRN (20:38)
[2019-01-18] MEDS: Mirtazapine 15 MG TABLET PO SCH (22:45)
[2019-01-19] MEDS: Piperacillin/Tazobactam 3.375 GM in 0.9 % Sodium Chloride Mini Bag 100 ML IVPB SCH ×3 (01:00→17:56)
[2019-01-19] MEDS: *HR* Metoprolol 5 MG/5 ML VIAL IVP PRN (02:15)
[2019-01-19] MEDS: Levalbuterol Neb 0.63 MG/3 ML IH SCH ×4 (03:19→22:03)
[2019-01-19 06:13] LABS: Basophils % 0.2 %; Hematocrit 28.2 % (37.5-50.1); Hemoglobin 8.6 g/dL (12.9-16.9); Immature Granulocytes % 0.5 % (0-4); Lymphocytes % 7.4 %; Mean Corpuscular HGB Conc 30.5 g/dL (31.6-35.5); Mean Corpuscular Hemoglobin 28.1 pg (28.0-33.3); Mean Corpuscular Volume 92.2 fL (83.0-100.0); Mean Platelet Volume 8.9 fL (9.4-12.4); Monocytes # 1.4 K/mcL (0.0-1.3); Monocytes % 10.5 %; Neutrophils # 10.5 K/mcL (1.6-8.9); Platelet Count 436 K/mcL (140-400); Red Blood Count 3.06 M/mcL (4.19-5.50); Segmented Neutrophils % 81.4 %; White Blood Count 12.9 K/mcL (4.3-11.1)
[2019-01-19] MEDS: *HR* Heparin 5,000 UNIT/ML VIAL SQ SCH ×3 (06:23→22:09)
[2019-01-19] MEDS: Metoprolol XL (24 HR) Succ 50 MG TAB.ER.24H PO SCH (06:49)
[2019-01-19 07:25] LABS: BUN/Creatinine Ratio 41 (6-26); Blood Urea Nitrogen 24 mg/dL (8-23); Carbon Dioxide 25 mEq/L (23-29); Chloride 102 mEq/L (98-107); Glucose 221 mg/dL (70-105); Osmolality,Calculated 291 (280-300); Sodium 135 mEq/L (136-145); eGFR For African Americans > 60 (> 60); eGFR For Non-African Americans > 60 (> 60)
[2019-01-19] MEDS: BuPROPion SR (12 HR) 150 MG TABLET PO SCH ×2 (08:44→21:35)
[2019-01-19] MEDS: Diltiazem CD (24hr) 240 MG CAPSULE PO SCH (08:44)
[2019-01-19] MEDS: Insulin LISPRO 300 UNITS/3 ML VIAL SQ SCH ×4 (08:49→21:36)
[2019-01-19 10:13] LABS: Lactate Dehydrogenase 246 Units/L (140-271); Total Protein 5.4 g/dL (6.4-8.9)
[2019-01-19] MEDS ORDERED: 0.9 % Sodium Chloride 1,000 ML IVC SCH (12:00)
[2019-01-19 13:48] LABS: Glucose,Pleural Fluid 145 mg/dL (No Ref Range); LDH,Pleural Fluid 841 Units/L (No Ref Range); Total Protein,Pleural Fluid < 3.0 g/dL
[2019-01-19 15:59] LABS: Appearance of Pleural Fl Bloody (Clear)
[2019-01-19 16:11] LABS: Basophils,Pleural Fluid 0 %; Eosinophils,Pleural Fluid 0 %; Lymphocytes,Pleural Fluid 0 %; Monocytes,Pleural Fluid 0 %
[2019-01-19] MEDS: MethylPREDNISolone 40 MG/ML VIAL IVP SCH (17:54)
[2019-01-19] MEDS ORDERED: *HR* Metoprolol 5 MG/5 ML VIAL IVP ONE ×2 (19:51→20:07)
[2019-01-19] MEDS: Mirtazapine 15 MG TABLET PO SCH (21:35)
[2019-01-19] MEDS: clonazePAM 1 MG TABLET PO PRN (21:35)
[2019-01-20] MEDS: Piperacillin/Tazobactam 3.375 GM in 0.9 % Sodium Chloride Mini Bag 100 ML IVPB SCH ×4 (00:50→23:35)
[2019-01-20] MEDS: Levalbuterol Neb 0.63 MG/3 ML IH SCH ×4 (03:55→21:52)
[2019-01-20 04:40] LABS: Basophils % 0.1 %; Hematocrit 29.7 % (37.5-50.1); Immature Granulocytes % 0.3 % (0-4); Lymphocytes # 0.3 K/mcL (0.6-4.6); Lymphocytes % 3.5 %; Mean Corpuscular HGB Conc 30.3 g/dL (31.6-35.5); Mean Corpuscular Hemoglobin 29.1 pg (28.0-33.3); Mean Corpuscular Volume 96.1 fL (83.0-100.0); Mean Platelet Volume 8.9 fL (9.4-12.4); Monocytes # 0.4 K/mcL (0.0-1.3); Monocytes % 3.9 %; Neutrophils # 8.6 K/mcL (1.6-8.9); Platelet Count 382 K/mcL (140-400); Red Blood Count 3.09 M/mcL (4.19-5.50); Red Cell Distribution Width 15.9 % (11.5-14.5); Segmented Neutrophils % 92.2 %; White Blood Count 9.3 K/mcL (4.3-11.1)
[2019-01-20 05:01] LABS: BUN/Creatinine Ratio 56 (6-26); Blood Urea Nitrogen 28 mg/dL (8-23); Calcium 9.2 mg/dL (8.6-10.3); Carbon Dioxide 25 mEq/L (23-29); Chloride 103 mEq/L (98-107); Glucose 264 mg/dL (70-105); Osmolality,Calculated 303 (280-300); Potassium 4.4 mEq/L (3.5-5.1); Sodium 139 mEq/L (136-145); eGFR For African Americans > 60 (> 60); eGFR For Non-African Americans > 60 (> 60)
[2019-01-20] MEDS: *HR* Heparin 5,000 UNIT/ML VIAL SQ SCH ×3 (06:51→21:29)
[2019-01-20] MEDS: MethylPREDNISolone 40 MG/ML VIAL IVP SCH ×2 (06:52→17:19)
[2019-01-20] MEDS: Insulin LISPRO 300 UNITS/3 ML VIAL SQ SCH ×4 (08:15→21:32)
[2019-01-20] MEDS: Diltiazem CD (24hr) 240 MG CAPSULE PO SCH (08:16)
[2019-01-20] MEDS: Metoprolol XL (24 HR) Succ 50 MG TAB.ER.24H PO SCH (08:16)
[2019-01-20] MEDS: BuPROPion SR (12 HR) 150 MG TABLET PO SCH ×2 (08:16→21:29)
[2019-01-20] MEDS: *HR* Metoprolol 5 MG/5 ML VIAL IVP PRN (08:17)
[2019-01-20 14:25] LABS: Fluid Source for Albumin PLEURAL FLUID
[2019-01-20] MEDS ORDERED: Aminoglycoside Consult 1 EACH MC ONE (18:21)
[2019-01-20] MEDS: clonazePAM 1 MG TABLET PO PRN (21:29)
[2019-01-20] MEDS: Acetaminophen 325 MG TABLET PO PRN (21:29)
[2019-01-20] MEDS: Mirtazapine 15 MG TABLET PO SCH (21:29)
[2019-01-21] MEDS: Levalbuterol Neb 0.63 MG/3 ML IH SCH ×4 (03:41→22:12)
[2019-01-21] MEDS: MethylPREDNISolone 40 MG/ML VIAL IVP SCH ×2 (05:59→18:10)
[2019-01-21] MEDS: *HR* Heparin 5,000 UNIT/ML VIAL SQ SCH ×3 (05:59→20:54)
[2019-01-21 06:08] LABS: Hematocrit 30.1 % (37.5-50.1); Mean Corpuscular HGB Conc 29.9 g/dL (31.6-35.5); Mean Corpuscular Hemoglobin 28.7 pg (28.0-33.3); Mean Corpuscular Volume 95.9 fL (83.0-100.0); Mean Platelet Volume 9.5 fL (9.4-12.4); Platelet Count 206 K/mcL (140-400); Red Blood Count 3.14 M/mcL (4.19-5.50); White Blood Count 13.9 K/mcL (4.3-11.1)
[2019-01-21 06:57] LABS: BUN/Creatinine Ratio 62 (6-26); Blood Urea Nitrogen 36 mg/dL (8-23); Calcium 8.8 mg/dL (8.6-10.3); Carbon Dioxide 26 mEq/L (23-29); Chloride 104 mEq/L (98-107); Glucose 311 mg/dL (70-105); Osmolality,Calculated 304 (280-300); Potassium 4.9 mEq/L (3.5-5.1); Sodium 137 mEq/L (136-145); eGFR For African Americans > 60 (> 60); eGFR For Non-African Americans > 60 (> 60)
[2019-01-21] MEDS: Piperacillin/Tazobactam 3.375 GM in 0.9 % Sodium Chloride Mini Bag 100 ML IVPB SCH ×3 (08:28→23:30)
[2019-01-21] MEDS: BuPROPion SR (12 HR) 150 MG TABLET PO SCH ×2 (08:29→20:55)
[2019-01-21] MEDS: Insulin LISPRO 300 UNITS/3 ML VIAL SQ SCH ×4 (08:29→20:58)
[2019-01-21] MEDS: Metoprolol XL (24 HR) Succ 50 MG TAB.ER.24H PO SCH (08:29)
[2019-01-21] MEDS: Diltiazem CD (24hr) 240 MG CAPSULE PO SCH (08:30)
[2019-01-21] MEDS: Acetaminophen 325 MG TABLET PO PRN ×2 (08:31→20:54)
[2019-01-21] MEDS ORDERED: Insulin LISPRO 300 UNITS/3 ML VIAL SQ SCH (12:16)
[2019-01-21] MEDS: Insulin DETEMIR 100 UNIT/ML X5UNITS SQ SCH (13:41)
[2019-01-21] MEDS ORDERED: Insulin LISPRO 300 UNITS/3 ML VIAL SQ ONE (16:26)
[2019-01-21] MEDS: Mirtazapine 15 MG TABLET PO SCH (20:54)
[2019-01-22] MEDS: Levalbuterol Neb 0.63 MG/3 ML IH SCH ×5 (04:35→22:53)
[2019-01-22 04:58] LABS: Basophils % 0.1 %; Hematocrit 30.2 % (37.5-50.1); Hemoglobin 9.3 g/dL (12.9-16.9); Immature Granulocytes % 0.7 % (0-4); Lymphocytes # 0.5 K/mcL (0.6-4.6); Lymphocytes % 3.2 %; Mean Corpuscular HGB Conc 30.8 g/dL (31.6-35.5); Mean Corpuscular Hemoglobin 29.2 pg (28.0-33.3); Mean Corpuscular Volume 94.7 fL (83.0-100.0); Mean Platelet Volume 8.9 fL (9.4-12.4); Monocytes # 0.8 K/mcL (0.0-1.3); Monocytes % 5.2 %; Platelet Count 429 K/mcL (140-400); Red Blood Count 3.19 M/mcL (4.19-5.50); Red Cell Distribution Width 15.9 % (11.5-14.5); Segmented Neutrophils % 90.8 %; White Blood Count 15.5 K/mcL (4.3-11.1)
[2019-01-22 05:10] LABS: BUN/Creatinine Ratio 61 (6-26); Blood Urea Nitrogen 41 mg/dL (8-23); Calcium 8.9 mg/dL (8.6-10.3); Carbon Dioxide 29 mEq/L (23-29); Chloride 101 mEq/L (98-107); Glucose 215 mg/dL (70-105); Osmolality,Calculated 307 (280-300); Potassium 4.4 mEq/L (3.5-5.1); Sodium 140 mEq/L (136-145); eGFR For African Americans > 60 (> 60); eGFR For Non-African Americans > 60 (> 60)
[2019-01-22] MEDS: MethylPREDNISolone 40 MG/ML VIAL IVP SCH (05:12)
[2019-01-22] MEDS: *HR* Heparin 5,000 UNIT/ML VIAL SQ SCH ×3 (05:12→22:10)
[2019-01-22] MEDS: Acetaminophen 325 MG TABLET PO PRN ×2 (05:22→16:27)
[2019-01-22] MEDS: Diltiazem CD (24hr) 240 MG CAPSULE PO SCH (08:01)
[2019-01-22] MEDS: Metoprolol XL (24 HR) Succ 50 MG TAB.ER.24H PO SCH (08:01)
[2019-01-22] MEDS: BuPROPion SR (12 HR) 150 MG TABLET PO SCH ×2 (08:01→20:11)
[2019-01-22] MEDS: Insulin LISPRO 300 UNITS/3 ML VIAL SQ SCH ×4 (08:01→20:13)
[2019-01-22] MEDS: Piperacillin/Tazobactam 3.375 GM in 0.9 % Sodium Chloride Mini Bag 100 ML IVPB SCH ×2 (08:02→16:27)
[2019-01-22] MEDS: Insulin DETEMIR 100 UNIT/ML X5UNITS SQ SCH (08:02)
[2019-01-22] MEDS ORDERED: Aspirin 325 MG TABLET PO ONE (09:07)
[2019-01-22] MEDS ORDERED: *HR* Metoprolol 5 MG/5 ML VIAL IVP ONE (09:20)
[2019-01-22 09:26] LABS: Basophils % 0.1 %; Hematocrit 31.2 % (37.5-50.1); Hemoglobin 9.6 g/dL (12.9-16.9); Immature Granulocytes % 0.6 % (0-4); Lymphocytes # 0.3 K/mcL (0.6-4.6); Lymphocytes % 2.1 %; Mean Corpuscular HGB Conc 30.8 g/dL (31.6-35.5); Mean Corpuscular Hemoglobin 29.4 pg (28.0-33.3); Mean Corpuscular Volume 95.4 fL (83.0-100.0); Mean Platelet Volume 8.8 fL (9.4-12.4); Monocytes # 0.3 K/mcL (0.0-1.3); Monocytes % 2.3 %; Neutrophils # 13.8 K/mcL (1.6-8.9); Platelet Count 430 K/mcL (140-400); Red Blood Count 3.27 M/mcL (4.19-5.50); Red Cell Distribution Width 15.9 % (11.5-14.5); Segmented Neutrophils % 94.9 %; White Blood Count 14.5 K/mcL (4.3-11.1)
[2019-01-22 09:42] LABS: BUN/Creatinine Ratio 62 (6-26); Blood Urea Nitrogen 43 mg/dL (8-23); Calcium 8.7 mg/dL (8.6-10.3); Carbon Dioxide 27 mEq/L (23-29); Chloride 102 mEq/L (98-107); Glucose 396 mg/dL (70-105); Osmolality,Calculated 315 (280-300); Sodium 139 mEq/L (136-145); Troponin I < 0.03 ng/mL (< 0.04); eGFR For African Americans > 60 (> 60); eGFR For Non-African Americans > 60 (> 60)
[2019-01-22] MEDS ORDERED: Insulin DETEMIR 100 UNIT/ML X5UNITS SQ ONE (10:09)
[2019-01-22] MEDS ORDERED: Metoprolol XL (24 HR) Succ 50 MG TAB.ER.24H PO ONE (20:00)
[2019-01-22] MEDS: Lactobacillus 1 EACH CAP.SPRINK PO SCH (20:11)
[2019-01-22] MEDS: Mirtazapine 15 MG TABLET PO SCH (20:11)
[2019-01-22] MEDS: clonazePAM 1 MG TABLET PO PRN (20:11)
[2019-01-23] MEDS: Piperacillin/Tazobactam 3.375 GM in 0.9 % Sodium Chloride Mini Bag 100 ML IVPB SCH ×4 (00:21→23:45)
[2019-01-23] MEDS: Levalbuterol Neb 0.63 MG/3 ML IH SCH ×4 (04:17→21:24)
[2019-01-23] MEDS: *HR* Heparin 5,000 UNIT/ML VIAL SQ SCH ×3 (05:24→20:34)
[2019-01-23 05:43] LABS: Basophils % 0.1 %; Eosinophils # 0.1 K/mcL (0.0-0.6); Eosinophils % 0.6 %; Hematocrit 32.3 % (37.5-50.1); Hemoglobin 9.9 g/dL (12.9-16.9); Immature Granulocytes % 0.9 % (0-4); Lymphocytes # 1.2 K/mcL (0.6-4.6); Lymphocytes % 8.5 %; Mean Corpuscular HGB Conc 30.7 g/dL (31.6-35.5); Mean Corpuscular Hemoglobin 29.3 pg (28.0-33.3); Mean Corpuscular Volume 95.6 fL (83.0-100.0); Mean Platelet Volume 8.7 fL (9.4-12.4); Monocytes # 1.1 K/mcL (0.0-1.3); Monocytes % 7.9 %; Neutrophils # 11.4 K/mcL (1.6-8.9); Platelet Count 477 K/mcL (140-400); Red Blood Count 3.38 M/mcL (4.19-5.50); Red Cell Distribution Width 16.2 % (11.5-14.5); White Blood Count 13.9 K/mcL (4.3-11.1)
[2019-01-23] MEDS: Acetaminophen 325 MG TABLET PO PRN ×3 (06:07→23:42)
[2019-01-23 06:42] LABS: BUN/Creatinine Ratio 61 (6-26); Blood Urea Nitrogen 41 mg/dL (8-23); Calcium 8.6 mg/dL (8.6-10.3); Carbon Dioxide 32 mEq/L (23-29); Chloride 104 mEq/L (98-107); Glucose 172 mg/dL (70-105); Osmolality,Calculated 314 (280-300); Potassium 3.9 mEq/L (3.5-5.1); Sodium 145 mEq/L (136-145); eGFR For African Americans > 60 (> 60); eGFR For Non-African Americans > 60 (> 60)
[2019-01-23] MEDS: Insulin LISPRO 300 UNITS/3 ML VIAL SQ SCH ×4 (08:07→20:36)
[2019-01-23] MEDS: BuPROPion SR (12 HR) 150 MG TABLET PO SCH ×2 (08:16→20:52)
[2019-01-23] MEDS: predniSONE 20 MG TABLET PO SCH (08:16)
[2019-01-23] MEDS: Diltiazem CD (24hr) 240 MG CAPSULE PO SCH (08:16)
[2019-01-23] MEDS: Metoprolol XL (24 HR) Succ 50 MG TAB.ER.24H PO SCH ×2 (08:17→20:36)
[2019-01-23] MEDS: Insulin DETEMIR 100 UNIT/ML X5UNITS SQ SCH (08:17)
[2019-01-23] MEDS: Aspirin Enteric Coated 81 MG Tablet PO SCH (08:17)
[2019-01-23] MEDS: Lactobacillus 1 EACH CAP.SPRINK PO SCH ×2 (08:17→20:35)
[2019-01-23] MEDS: clonazePAM 1 MG TABLET PO PRN (20:34)
[2019-01-23] MEDS: Mirtazapine 15 MG TABLET PO SCH (20:35)
[2019-01-24 02:01] LABS: Basophils % 0.1 %; Eosinophils # 0.2 K/mcL (0.0-0.6); Eosinophils % 1.6 %; Hematocrit 30.4 % (37.5-50.1); Hemoglobin 9.1 g/dL (12.9-16.9); Immature Granulocytes % 1.1 % (0-4); Lymphocytes # 1.1 K/mcL (0.6-4.6); Lymphocytes % 7.5 %; Mean Corpuscular HGB Conc 29.9 g/dL (31.6-35.5); Mean Corpuscular Hemoglobin 28.6 pg (28.0-33.3); Mean Corpuscular Volume 95.6 fL (83.0-100.0); Mean Platelet Volume 9.1 fL (9.4-12.4); Monocytes # 1.4 K/mcL (0.0-1.3); Monocytes % 9.9 %; Neutrophils # 11.2 K/mcL (1.6-8.9); Platelet Count 372 K/mcL (140-400); Red Blood Count 3.18 M/mcL (4.19-5.50); Red Cell Distribution Width 16.2 % (11.5-14.5); Segmented Neutrophils % 79.8 %; White Blood Count 14.1 K/mcL (4.3-11.1)
[2019-01-24 02:18] LABS: BUN/Creatinine Ratio 57 (6-26); Blood Urea Nitrogen 32 mg/dL (8-23); Calcium 8.4 mg/dL (8.6-10.3); Carbon Dioxide 33 mEq/L (23-29); Chloride 105 mEq/L (98-107); Glucose 117 mg/dL (70-105); Magnesium 1.9 mg/dL (1.6-2.6); Osmolality,Calculated 302 (280-300); Sodium 142 mEq/L (136-145); eGFR For African Americans > 60 (> 60); eGFR For Non-African Americans > 60 (> 60)
[2019-01-24] MEDS: Levalbuterol Neb 0.63 MG/3 ML IH SCH ×4 (04:06→21:56)
[2019-01-24] MEDS: *HR* Heparin 5,000 UNIT/ML VIAL SQ SCH ×3 (05:03→21:45)
[2019-01-24] MEDS: Acetaminophen 325 MG TABLET PO PRN ×2 (07:32→21:43)
[2019-01-24] MEDS: Insulin LISPRO 300 UNITS/3 ML VIAL SQ SCH ×3 (07:44→21:49)
[2019-01-24] MEDS: Metoprolol XL (24 HR) Succ 50 MG TAB.ER.24H PO SCH ×2 (08:11→21:44)
[2019-01-24] MEDS: Piperacillin/Tazobactam 3.375 GM in 0.9 % Sodium Chloride Mini Bag 100 ML IVPB SCH ×2 (08:11→15:22)
[2019-01-24] MEDS: predniSONE 20 MG TABLET PO SCH (08:20)
[2019-01-24] MEDS: BuPROPion SR (12 HR) 150 MG TABLET PO SCH ×2 (08:20→21:45)
[2019-01-24] MEDS: Diltiazem CD (24hr) 240 MG CAPSULE PO SCH (08:20)
[2019-01-24] MEDS: Lactobacillus 1 EACH CAP.SPRINK PO SCH ×2 (08:20→21:45)
[2019-01-24] MEDS: Aspirin Enteric Coated 81 MG Tablet PO SCH (08:20)
[2019-01-24] MEDS: Insulin DETEMIR 100 UNIT/ML X5UNITS SQ SCH (08:22)
[2019-01-24] MEDS: *HR* Metoprolol 5 MG/5 ML VIAL IVP PRN (19:13)
[2019-01-24] MEDS: Mirtazapine 15 MG TABLET PO SCH (21:45)
[2019-01-25] MEDS: Piperacillin/Tazobactam 3.375 GM in 0.9 % Sodium Chloride Mini Bag 100 ML IVPB SCH ×3 (00:24→17:28)
[2019-01-25] MEDS: Levalbuterol Neb 0.63 MG/3 ML IH SCH ×4 (04:17→21:49)
[2019-01-25] MEDS: *HR* Metoprolol 5 MG/5 ML VIAL IVP PRN (04:54)
[2019-01-25] MEDS: *HR* Heparin 5,000 UNIT/ML VIAL SQ SCH ×3 (05:32→21:27)
[2019-01-25 06:09] LABS: Basophils % 0.1 %; Eosinophils # 0.5 K/mcL (0.0-0.6); Eosinophils % 2.9 %; Hematocrit 31.6 % (37.5-50.1); Hemoglobin 9.9 g/dL (12.9-16.9); Immature Granulocytes % 0.9 % (0-4); Lymphocytes # 1.5 K/mcL (0.6-4.6); Lymphocytes % 9.2 %; Mean Corpuscular HGB Conc 31.3 g/dL (31.6-35.5); Mean Corpuscular Hemoglobin 29.3 pg (28.0-33.3); Mean Corpuscular Volume 93.5 fL (83.0-100.0); Mean Platelet Volume 8.6 fL (9.4-12.4); Monocytes # 1.8 K/mcL (0.0-1.3); Monocytes % 11.2 %; Neutrophils # 12.2 K/mcL (1.6-8.9); Platelet Count 409 K/mcL (140-400); Red Blood Count 3.38 M/mcL (4.19-5.50); Red Cell Distribution Width 16.7 % (11.5-14.5); Segmented Neutrophils % 75.7 %; White Blood Count 16.1 K/mcL (4.3-11.1)
[2019-01-25 06:30] LABS: BUN/Creatinine Ratio 53 (6-26); Blood Urea Nitrogen 26 mg/dL (8-23); Calcium 8.5 mg/dL (8.6-10.3); Carbon Dioxide 32 mEq/L (23-29); Chloride 103 mEq/L (98-107); Glucose 136 mg/dL (70-105); Magnesium 1.7 mg/dL (1.6-2.6); Osmolality,Calculated 297 (280-300); Potassium 3.7 mEq/L (3.5-5.1); Sodium 140 mEq/L (136-145); eGFR For African Americans > 60 (> 60); eGFR For Non-African Americans > 60 (> 60)
[2019-01-25] MEDS: Insulin LISPRO 300 UNITS/3 ML VIAL SQ SCH ×4 (09:45→21:43)
[2019-01-25] MEDS: Diltiazem CD (24hr) 240 MG CAPSULE PO SCH (09:47)
[2019-01-25] MEDS: Metoprolol XL (24 HR) Succ 50 MG TAB.ER.24H PO SCH ×2 (09:47→21:26)
[2019-01-25] MEDS: Aspirin Enteric Coated 81 MG Tablet PO SCH (09:47)
[2019-01-25] MEDS: Lactobacillus 1 EACH CAP.SPRINK PO SCH ×2 (09:47→21:26)
[2019-01-25] MEDS: predniSONE 20 MG TABLET PO SCH (09:47)
[2019-01-25] MEDS: BuPROPion SR (12 HR) 150 MG TABLET PO SCH ×2 (09:47→21:27)
[2019-01-25] MEDS: Insulin DETEMIR 100 UNIT/ML X5UNITS SQ SCH (09:49)
[2019-01-25] MEDS ORDERED: *HR* Digoxin 0.5 MG/2 ML AMPUL IVP ONE (09:54)
[2019-01-25] MEDS: Acetaminophen 325 MG TABLET PO PRN ×2 (10:31→21:26)
[2019-01-25] MEDS: Mirtazapine 15 MG TABLET PO SCH (21:26)
[2019-01-26] MEDS: Piperacillin/Tazobactam 3.375 GM in 0.9 % Sodium Chloride Mini Bag 100 ML IVPB SCH ×3 (00:31→15:10)
[2019-01-26] MEDS: clonazePAM 1 MG TABLET PO PRN (03:23)
[2019-01-26] MEDS: Acetaminophen 325 MG TABLET PO PRN ×2 (03:28→11:16)
[2019-01-26] MEDS: Levalbuterol Neb 0.63 MG/3 ML IH SCH ×3 (04:07→15:51)
[2019-01-26 04:41] LABS: Basophils % 0.1 %; Eosinophils # 0.2 K/mcL (0.0-0.6); Eosinophils % 1.8 %; Hematocrit 30.8 % (37.5-50.1); Hemoglobin 9.5 g/dL (12.9-16.9); Lymphocytes # 1.6 K/mcL (0.6-4.6); Lymphocytes % 11.7 %; Mean Corpuscular HGB Conc 30.8 g/dL (31.6-35.5); Mean Corpuscular Hemoglobin 29.5 pg (28.0-33.3); Mean Corpuscular Volume 95.7 fL (83.0-100.0); Mean Platelet Volume 9.8 fL (9.4-12.4); Monocytes # 1.7 K/mcL (0.0-1.3); Monocytes % 12.7 %; Neutrophils # 9.7 K/mcL (1.6-8.9); Platelet Count 327 K/mcL (140-400); Red Blood Count 3.22 M/mcL (4.19-5.50); Red Cell Distribution Width 17.1 % (11.5-14.5); Segmented Neutrophils % 72.7 %; White Blood Count 13.3 K/mcL (4.3-11.1)
[2019-01-26 04:56] LABS: BUN/Creatinine Ratio 60 (6-26); Blood Urea Nitrogen 31 mg/dL (8-23); Calcium 8.4 mg/dL (8.6-10.3); Carbon Dioxide 31 mEq/L (23-29); Chloride 105 mEq/L (98-107); Glucose 97 mg/dL (70-105); Magnesium 1.8 mg/dL (1.6-2.6); Osmolality,Calculated 296 (280-300); Potassium 3.7 mEq/L (3.5-5.1); Sodium 140 mEq/L (136-145); eGFR For African Americans > 60 (> 60); eGFR For Non-African Americans > 60 (> 60)
[2019-01-26] MEDS: *HR* Heparin 5,000 UNIT/ML VIAL SQ SCH ×2 (06:25→14:07)
[2019-01-26] MEDS: Insulin LISPRO 300 UNITS/3 ML VIAL SQ SCH ×3 (08:55→16:18)
[2019-01-26] MEDS: predniSONE 20 MG TABLET PO SCH (08:59)
[2019-01-26] MEDS: Aspirin Enteric Coated 81 MG Tablet PO SCH (08:59)
[2019-01-26] MEDS: Lactobacillus 1 EACH CAP.SPRINK PO SCH (08:59)
[2019-01-26] MEDS: BuPROPion SR (12 HR) 150 MG TABLET PO SCH (08:59)
[2019-01-26] MEDS ORDERED: *HR* Digoxin 0.125 MG TABLET PO SCH (09:00)
[2019-01-26] MEDS ORDERED: Metoprolol XL (24 HR) Succ 50 MG TAB.ER.24H PO SCH (09:00)
[2019-01-26] MEDS: Insulin DETEMIR 100 UNIT/ML X5UNITS SQ SCH (09:02)
[2019-01-26] MEDS ORDERED: FLU Vac QV 19-20 (6Month+)/PF 0.5 ML SYRINGE IM ONE (14:26)
[2019-01-26 15:27] VITALS: BP 104/55
[2019-01-27] MEDS ORDERED: Diltiazem CD (24hr) 120 MG CAPSULE PO SCH (09:00)
== END 2019-01-26 18:22 | DRG 871 ==
LOC: EMEROOARM 21:11 → 2ANU 21:11 → SUATTDRO 01-16 03:56 → 2ANU 01-16 04:12 → SUATTDRO 01-18 10:20
PROVIDERS: ADMIT Internal Medicine; ATTEND Pharmacist